=== PATIENT | male | born 1960 | race Caucasian/White ===

== ENCOUNTER 2016-07-12 17:38 | Inpatient (IN) | payer MEDICARE, OTHER ==
[2016-07-12 17:52] LABS: Glucose,Whole Blood 171 mg/dL (75-99)
[2016-07-12] MEDS ORDERED: SODIUM CHLORIDE 0.9% 500 ML IV ONE (17:53)
--- NOTE | 2016-07-12 17:58 | ED ---
General Adult HPI - General Source: patient, RN notes reviewed Mode of arrival: EMS Limitations: physical limitation <Francisco Javier Parra - Last Filed: 07/12/16 18:44> <Irineo Bobby - Last Filed: 07/12/16 20:21> - General Chief complaint: Fall Stated complaint: tremors Time Seen by Provider: 07/12/16 17:45 - History of Present Illness Initial comments: This is a 55-year-old male who presents emergency Department with a past medical history significant for bypass surgery, [place], TIA and a distant past history for alcohol and drug abuse. Patient states today at about 2:30 he had an episode where his whole body was shaking and he felt the ground he did not injure anything when he went to the ground but he states he continued shaking for about 15 minutes. Patient states he was able to get up off the ground while he was shaking but eventually subsided. Patient states just prior to arrival he had similar symptoms but didn't shake as much but did fall to the ground. Patient states both accounts he felt as though he was going to pass out. Patient denies any chest pain or palpitations at the time. Patient denies any difficulty breathing shortness of breath that time. Patient denies any recent fever or cough. Patient denies headache patient denies any focal weakness or numbness. Patient denies any abdominal pain patient denies nausea vomiting diarrhea. Patient denies any back pain. (Francisco Javier Parra) - Related Data Home Medications Medication Instructions Recorded Confirmed Albuterol Inhaler [Ventolin Hfa 2 puff INHALATION RT-QID PRN 07/12/16 07/12/16 Inhaler] Albuterol Nebulized [Ventolin 2.5 mg INHALATION RT-TID 07/12/16 07/12/16 Nebulized] Aspirin 81 mg PO DAILY 07/12/16 07/12/16 Atorvastatin Calcium [Lipitor] 40 mg PO DAILY 07/12/16 07/12/16 Carvedilol [Coreg] 6.25 mg PO BID 07/12/16 07/12/16 Cholecalciferol [Vitamin D3] 1,000 unit PO DAILY 07/12/16 07/12/16 Clopidogrel Bisulfate [Plavix] 75 mg PO DAILY 07/12/16 07/12/16 DULoxetine HCL [Cymbalta] 120 mg PO DAILY 07/12/16 07/12/16 Divalproex ER [Depakote ER] 500 mg PO QID 07/12/16 07/12/16 Docusate [Colace] 100 mg PO BID PRN 07/12/16 07/12/16 Escitalopram Oxalate [Lexapro] 20 mg PO DAILY 07/12/16 07/12/16 Famotidine [Pepcid] 20 mg PO DAILY 07/12/16 07/12/16 Furosemide [Lasix] 40 mg PO DAILY 07/12/16 07/12/16 Gabapentin [Neurontin] 600 mg PO QID 07/12/16 07/12/16 Gemfibrozil [Lopid] 600 mg PO BID 07/12/16 07/12/16 Ibuprofen [Motrin] 800 mg PO Q8HR PRN 07/12/16 07/12/16 Insulin Aspart [NovoLOG] 10 unit SQ ACHS 07/12/16 07/12/16 Insulin Glargine [Lantus] 20 unit SQ QAM 07/12/16 07/12/16 Insulin Glargine [Lantus] 40 unit SQ HS 07/12/16 07/12/16 Multivitamin [Men's Multi-Vitamin] 1 tab PO DAILY 07/12/16 07/12/16 [place]-3 Acid Ethyl Esters [Lovaza] 1 gm PO QID 07/12/16 07/12/16 Potassium Chloride ER [K-Dur 20] 20 meq PO DAILY 07/12/16 07/12/16 Ramipril [Altace] 2.5 mg PO DAILY 07/12/16 07/12/16 Ranolazine [Ranexa] 500 mg PO BID 07/12/16 07/12/16 fentaNYL 12MCG/HR PATCH [Duragesic 1 patch TRANSDERM Q48H 07/12/16 07/12/16 12MCG/HR] fentaNYL 25MCG/HR PATCH [Duragesic 1 patch TRANSDERM Q48H 07/12/16 07/12/16 25MCG/HR] Allergies Allergy/AdvReac Type Severity Reaction Status Date / Time codeine Allergy Itching Verified 07/12/16 18:09 Review of Systems ROS Other: All systems not noted in ROS Statement are negative. <Francisco Javier Parra - Last Filed: 07/12/16 18:44> ROS Other: All systems not noted in ROS Statement are negative. <Irineo Bobby - Last Filed: 07/12/16 20:21> ROS Statement: Those systems with pertinent positive or pertinent negative responses have been documented in the HPI. Past Medical History Past Medical History: CVA/TIA, Diabetes Mellitus, Hyperlipidemia, Hypertension, Myocardial Infarction ([place]) Additional Past Medical History / Comment(s): hx of drug and alcohol abuse. History of Any Multi-Drug Resistant Organisms: None Reported Past Surgical History: Cholecystectomy, Coronary Bypass/CABG, Heart Catheterization With Stent Past Psychological History: Bipolar Smoking Status: Current every day smoker Past Alcohol Use History: None Reported Past Drug Use History: None Reported <Francisco Javier Parra - Last Filed: 07/12/16 18:44> General Exam Limitations: physical limitation <Francisco Javier Parra - Last Filed: 07/12/16 18:44> <Irineo Bobby - Last Filed: 07/12/16 20:21> - General Exam Comments Initial Comments: GENERAL: Patient is well-developed and well-nourished. Patient is nontoxic and well- hydrated and is in no acute distress. ENT: Neck is soft and supple. No significant lymphadenopathy is noted. Oropharynx is clear. Moist mucous membranes. Neck has full range of motion without eliciting any pain. EYES: The sclera were anicteric and conjunctiva were pink and moist. Extraocular movements were intact and pupils were equal round and reactive to light. Eyelids were unremarkable. PULMONARY: Unlabored respirations. Good breath sounds bilaterally. No audible rales rhonchi or wheezing was noted. CARDIOVASCULAR: There is a regular rate and rhythm without any murmurs gallops or rubs. y ABDOMEN: Soft and nontender with normal bowel sounds. No palpable organomegaly was noted. There is no palpable pulsatile mass. SKIN: Skin is clear with no lesions or rashes and otherwise unremarkable. NEUROLOGIC: Patient is alert and oriented x3. Cranial nerves II through XII are grossly intact. Motor and sensory are also intact. Normal speech, volume and content. Symmetrical smile. MUSCULOSKELETAL: Normal extremities with adequate strength and full range of motion. No lower extremity swelling or edema. No calf tenderness. LYMPHATICS: No significant lymphadenopathy is noted PSYCHIATRIC: Normal psychiatric evaluation. (Francisco Javier Parra) Medical Decision Making - Lab Data Result diagrams: 07/12/16 18:00 07/12/16 18:00 <Francisco Javier Parra - Last Filed: 07/12/16 18:44> - Lab Data Result diagrams: 07/12/16 18:00 07/12/16 18:00 - Radiology Data Radiology results: image reviewed (Chest x-ray shows no acute process) <Irineo Bobby - Last Filed: 07/12/16 20:21> - Medical Decision Making EKG shows a sinus rhythm at 64 bpm WI interval is 106 QRS is under 42 QT interval 46 QTC is 474. Patient's EKG shows T-wave inversions in leads 1 and aVL as well as precordial leads V4 through V6 per patient also has some ST segment elevation in leads 3. I'm currently trying to obtain an old EKG for comparison purposes. Patient currently has no chest pain and has not had any chest pain all day. I received the old EKG from [facility] comparative is no acute changes noted. Dr. Bobby will be taking over the care of this patient at 7 PM (Francisco Javier Parra) Patient reevaluated by myself, Dr. Bobby. Patient resting comfortably in bed and symptom-free. Case discussed in detail with Dr. franklin, who will admit for Dr. Kaur. Computed tomography scan will be added. Patient states he did have a recent TIA. (Irineo Bobby) - Lab Data Lab Results 07/12/16 07/12/16 07/12/16 Range/Units 17:48 18:00 18:00 WBC 6.5 (3.8-10.6) k/uL RBC 4.61 (4.30-5.90) m/uL Hgb 14.5 (13.0-17.5) gm/dL Hct 42.0 (39.0-53.0) % MCV 91.1 (80.0-100.0) fL MCH 31.4 (25.0-35.0) pg MCHC 34.4 (31.0-37.0) g/dL RDW 12.7 (11.5-15.5) % Plt Count 211 (150-450) k/uL Neutrophils % 49 % Lymphocytes % 40 % Monocytes % 4 % Eosinophils % 4 % Basophils % 1 % Neutrophils # 3.2 (1.3-7.7) k/uL Lymphocytes # 2.6 (1.0-4.8) k/uL Monocytes # 0.3 (0-1.0) k/uL Eosinophils # 0.3 (0-0.7) k/uL Basophils # 0.0 (0-0.2) k/uL PT (9.0-12.0) sec INR (<1.1) APTT (22.0-30.0) sec Sodium (137-145) mmol/L Potassium (3.5-5.1) mmol/L Chloride (98-107) mmol/L Carbon Dioxide (22-30) mmol/L Anion Gap mmol/L BUN (9-20) mg/dL Creatinine (0.66-1.25) mg/dL Est GFR (MDRD) Af Amer (>60 ml/min/1.73 sqM) Est GFR (MDRD) Non-Af (>60 ml/min/1.73 sqM) Glucose (74-99) mg/dL POC Glucose (mg/dL) 171 H (75-99) mg/dL POC Glu Bench Hand ID [place] Calcium (8.4-10.2) mg/dL Total Bilirubin (0.2-1.3) mg/dL AST (17-59) U/L ALT (21-72) U/L Alkaline Phosphatase (38-126) U/L Total Creatine Kinase 72 (55-170) U/L CK-MB (CK-2) 2.6 H* (0.0-2.4) ng/mL CK-MB (CK-2) Rel Index 3.6 Troponin I 0.041 H* (0.000-0.034) ng/mL Total Protein (6.3-8.2) g/dL Albumin (3.5-5.0) g/dL Urine Color Urine Appearance (Clear) Urine pH (5.0-8.0) Ur Specific [place] (1.001-1.035) Urine Protein (Negative) Urine Glucose (UA) (Negative) Urine Ketones (Negative) Urine Blood (Negative) Urine Nitrate (Negative) Urine Bilirubin (Negative) Urine Urobilinogen (<2.0) mg/dL Ur Leukocyte Esterase (Negative) Urine Opiates Screen (NotDetected) Ur Oxycodone Screen (NotDetected) Urine Methadone Screen (NotDetected) Ur Propoxyphene Screen (NotDetected) Ur Barbiturates Screen (NotDetected) U Tricyclic Antidepress (NotDetected) Ur Phencyclidine Scrn (NotDetected) Ur Amphetamines Screen (NotDetected) U Methamphetamines Scrn (NotDetected) U Benzodiazepines Scrn (NotDetected) Urine Cocaine Screen (NotDetected) U Marijuana (THC) Screen (NotDetected) 07/12/16 07/12/16 07/12/16 Range/Units 18:00 18:00 18:51 WBC (3.8-10.6) k/uL RBC (4.30-5.90) m/uL Hgb (13.0-17.5) gm/dL Hct (39.0-53.0) % MCV (80.0-100.0) fL MCH (25.0-35.0) pg MCHC (31.0-37.0) g/dL RDW (11.5-15.5) % Plt Count (150-450) k/uL Neutrophils % % Lymphocytes % % Monocytes % % Eosinophils % % Basophils % % Neutrophils # (1.3-7.7) k/uL Lymphocytes # (1.0-4.8) k/uL Monocytes # (0-1.0) k/uL Eosinophils # (0-0.7) k/uL Basophils # (0-0.2) k/uL PT 10.1 (9.0-12.0) sec INR 1.0 (<1.1) APTT 21.9 L (22.0-30.0) sec Sodium 140 (137-145) mmol/L Potassium 4.5 (3.5-5.1) mmol/L Chloride 100 (98-107) mmol/L Carbon Dioxide 26 (22-30) mmol/L Anion Gap 14 mmol/L BUN 18 (9-20) mg/dL Creatinine 1.53 H (0.66-1.25) mg/dL Est GFR (MDRD) Af Amer 58 (>60 ml/min/1.73 sqM) Est GFR (MDRD) Non-Af 48 (>60 ml/min/1.73 sqM) Glucose 163 H (74-99) mg/dL POC Glucose (mg/dL) (75-99) mg/dL POC Glu Bench Hand ID Calcium 9.7 (8.4-10.2) mg/dL Total Bilirubin 0.6 (0.2-1.3) mg/dL AST 14 L (17-59) U/L ALT 20 L (21-72) U/L Alkaline Phosphatase 74 (38-126) U/L Total Creatine Kinase (55-170) U/L CK-MB (CK-2) (0.0-2.4) ng/mL CK-MB (CK-2) Rel Index Troponin I (0.000-0.034) ng/mL Total Protein 6.8 (6.3-8.2) g/dL Albumin 3.7 (3.5-5.0) g/dL Urine Color Yellow Urine Appearance Clear (Clear) Urine pH 5.5 (5.0-8.0) Ur Specific [place] 1.014 (1.001-1.035) Urine Protein Trace H (Negative) Urine Glucose (UA) 4+ H (Negative) Urine Ketones Negative (Negative) Urine Blood Negative (Negative) Urine Nitrate Negative (Negative) Urine Bilirubin Negative (Negative) Urine Urobilinogen <2.0 (<2.0) mg/dL Ur Leukocyte Esterase Negative (Negative) Urine Opiates Screen Not Detected (NotDetected) Ur Oxycodone Screen Not Detected (NotDetected) Urine Methadone Screen Not Detected (NotDetected) Ur Propoxyphene Screen Not Detected (NotDetected) Ur Barbiturates Screen Not Detected (NotDetected) U Tricyclic Antidepress Detected H (NotDetected) Ur Phencyclidine Scrn Not Detected (NotDetected) Ur Amphetamines Screen Not Detected (NotDetected) U Methamphetamines Scrn Not Detected (NotDetected) U Benzodiazepines Scrn Not Detected (NotDetected) Urine Cocaine Screen Not Detected (NotDetected) U Marijuana (THC) Screen Not Detected (NotDetected) Disposition <Francisco Javier Parra - Last Filed: 07/12/16 18:44> <Irineo Bobby - Last Filed: 07/12/16 20:21> Clinical Impression: Tremor Disposition: ADMITTED IP TO THIS HOSP
[2016-07-12 18:11] LABS: Basophils % (A) 1 %; CH 32.3; CHCM 35.6; Eosinophils # (A) 0.3 k/uL (0-0.7); Eosinophils % (A) 4 %; HDW 2.91; HGB 14.5 gm/dL (13.0-17.5); Luc # (Auto) 0.11; Luc % (Auto) 2; Lymphocytes # (A) 2.6 k/uL (1.0-4.8); Lymphocytes % (A) 40 %; MCH 31.4 pg (25.0-35.0); MCHC 34.4 g/dL (31.0-37.0); MCV 91.1 fL (80.0-100.0); Mean Platelet Volume 7.6; Monocytes # (A) 0.3 k/uL (0-1.0); Monocytes % (A) 4 %; Neutrophils # (A) 3.2 k/uL (1.3-7.7); Neutrophils % (A) 49 %; RBC 4.61 m/uL (4.30-5.90); RDW 12.7 % (11.5-15.5); WBC 6.5 k/uL (3.8-10.6); WBC (Perox) 6.57
[2016-07-12 18:29] LABS: Calcium 9.7 mg/dL (8.4-10.2); Potassium 4.5 mmol/L (3.5-5.1); Total Bilirubin 0.6 mg/dL (0.2-1.3); Total Protein 6.8 g/dL (6.3-8.2)
[2016-07-12 18:32] LABS: Partial Thromboplastin Time 21.9 sec (22.0-30.0); Prothrombin Time 10.1 sec (9.0-12.0)
[2016-07-12 18:55] LABS: Creatine Kinase MB 2.6 ng/mL (0.0-2.4); Troponin I 0.041 ng/mL (0.000-0.034)
[2016-07-12 19:00] LABS: Appearance,Urine Clear (Clear); Bilirubin,Urine Negative (Negative); Glucose,Urine (UA) 4+ (Negative); Ketones,Urine Negative (Negative); Leukocyte Esterase,Urine Negative (Negative); Nitrite,Urine Negative (Negative); PH, Urine 5.5 (5.0-8.0); Protein,Urine Trace (Negative); Specific Gravity,Urine 1.014 (1.001-1.035); UA Billing (MACRO vs. MICRO) CHEM; Urobilinogen,Urine <2.0 mg/dL (<2.0)
--- NOTE | 2016-07-12 19:34 | XR ---
EXAMINATION TYPE: XR chest 2V DATE OF EXAM: 07/12/2016 6:17 PM HISTORY: Fall today, recent stroke TECHNIQUE: Frontal and lateral views of the chest are obtained. FINDINGS: There is no focal air space opacity, pleural effusion, or pneumothorax seen. The cardiac silhouette size is within normal limits. The osseous structures are intact. IMPRESSION: No acute cardiopulmonary process.
[2016-07-12] MEDS ORDERED: NALOXONE 0.4 MG/ML 1 ML VIAL IV PRN (20:22)
--- NOTE | 2016-07-12 20:56 | CT ---
EXAMINATION TYPE: CT brain wo con DATE OF EXAM: 07/12/2016 8:39 PM COMPARISON: NONE HISTORY: Tremors today. CT DLP: 988.60 mGycm Automated exposure control for dose reduction was used. FINDINGS: There is a 7 cm AP by 4 cm transverse by 4 cm in longitudinal low attenuation defect within the right paramedian cerebral hemisphere, with the low attenuation extending peripherally to involve the cerebral cortex, suggesting cytotoxic edema. The lesion involves the right parietal-occipital lo be in the vascular territory of the right posterior cerebral artery. There is associated sulcal effac ement. consistent with localized mass effect. There is no associated hemorrhage or midline shift of s tructures. There are no other intra-axial lesions. There is no encephalomalacia. The extra-axial compartment is negative. The calvarium is intact. The paranasal sinuses and mastoid sinus air cells and middle ear cavities ar e clear. The orbits are unremarkable. IMPRESSION: 7 x 4 x 4 cm low-attenuation defect appearing to represent cytotoxic edema. The findings suggest nonh emorrhagic infarction in the vascular territory of the right posterior cerebral artery. However, ther e is enough atypia in the findings to warrant further characterization using MRI/MRA without and with contrast.
[2016-07-12] MEDS ORDERED: ASPIRIN 325 MG TAB PO STA (21:13)
[2016-07-13] MEDS ORDERED: DOCUSATE 100 MG CAP PO PRN (00:32)
[2016-07-13] MEDS ORDERED: ALBUTEROL NEBULIZED 2.5 MG/3 ML INHALATION PRN (00:32)
[2016-07-13 00:34] LABS: Glucose,Whole Blood 171 mg/dL (75-99)
[2016-07-13] MEDS ORDERED: NON-FORMULARY DRUG (Omega-3 Acid Ethyl Esters [Lovaza] 1 GM) PO SCH (00:45)
[2016-07-13] MEDS: SODIUM CHLORIDE 0.9% 1,000 ML IV SCH ×2 (01:27→22:57)
[2016-07-13] MEDS: DIVALPROEX ER 500 MG TAB.ER.24H PO SCH ×5 (01:28→20:42)
[2016-07-13] MEDS: CARVEDILOL 6.25 MG TAB PO SCH ×3 (01:28→20:42)
[2016-07-13] MEDS: INSULIN GLARGINE 100 UNIT/ML 10 ML VIAL SQ SCH ×2 (01:28→20:41)
[2016-07-13] MEDS: GABAPENTIN 300 MG CAP PO SCH ×5 (01:29→20:41)
[2016-07-13] MEDS: RANOLAZINE 500 MG TAB.ER.12H PO SCH ×3 (01:29→20:41)
[2016-07-13] MEDS: GEMFIBROZIL 600 MG TAB PO SCH ×3 (01:29→20:42)
[2016-07-13] MEDS: ASPIRIN 325 MG TAB PO SCH ×2 (04:07→09:18)
[2016-07-13 06:55] LABS: Glucose,Whole Blood 344 mg/dL (75-99)
[2016-07-13] MEDS: INSULIN LISPRO (humaLOG) 300 UNIT/3 ML VIAL SQ SCH ×4 (07:06→20:41)
[2016-07-13] MEDS: DULoxetine HCL 60 MG CAPSULE.DR PO SCH (09:18)
[2016-07-13] MEDS: ESCITALOPRAM 20 MG TAB PO SCH (09:19)
[2016-07-13] MEDS: LISINOPRIL 10 MG TAB PO SCH (09:19)
[2016-07-13] MEDS: POTASSIUM CHLORIDE ER 20 MEQ TAB.ER PO SCH (09:19)
[2016-07-13] MEDS: MULTIVITAMINS, THERA 1 EACH TAB PO SCH (09:19)
[2016-07-13] MEDS: FAMOTIDINE 20 MG TAB PO SCH (09:19)
[2016-07-13] MEDS: ATORVASTATIN 40 MG TAB PO SCH (09:19)
[2016-07-13] MEDS: FUROSEMIDE 40 MG TAB PO SCH (09:20)
[2016-07-13] MEDS: CHOLECALCIFEROL 1,000 UNIT TAB PO SCH (09:20)
[2016-07-13] MEDS: CLOPIDOGREL 75 MG TAB PO SCH (09:20)
[2016-07-13] MEDS: ALBUTEROL NEBULIZED 2.5 MG/3 ML INHALATION SCH ×3 (09:50→19:16)
[2016-07-13 11:11] VITALS: RESP 18
[2016-07-13] MEDS ORDERED: LORazepam 2 MG/ML SYRINGE IV STA (11:32)
[2016-07-13 11:46] LABS: Glucose,Whole Blood 269 mg/dL (75-99)
[2016-07-13] MEDS ORDERED: NICOTINE POLACRILEX 2 MG GUM BUCCAL PRN (12:42)
[2016-07-13] MEDS: NICOTINE 14MG/24HR PATCH TRANSDERM SCH (13:08)
[2016-07-13 13:48] LABS: Hemoglobin A1C 11.5 % (4.2-6.1)
--- NOTE | 2016-07-13 16:00 | HP ---
DATE OF ADMISSION: 07/12/2016 PRESENTING COMPLAINT: Shaking. HISTORY OF PRESENTING COMPLAINT: This is a 55-year-old patient of Dr. Nicholas Kaur with rather extensive medical history. Patient's chronic stable medical conditions include congestive heart failure, COPD, diabetes mellitus type 2, hyperlipidemia, hypertension, sleep apnea, hypothyroid. Patient is a smoker. The patient yesterday was walking around the house when he started shaking and felt a bit dizzy. There was no chest pain. No shortness of breath. No edema. No fever. He was brought in for the same. Patient feels well otherwise. Patient did have a troponin leak. REVIEW OF SYSTEMS: CONSTITUTIONAL: Tired. HEENT: None. RESPIRATORY: Occasional wheezing. CARDIOVASCULAR: No chest pain. GASTROINTESTINAL: None. GENITOURINARY: None. MUSCULOSKELETAL: None. DERMATOLOGIC: None. HEMATOLOGIC: None. LYMPHATICS: None. PSYCHIATRY: Anxious. NEUROLOGICAL: As above. No focal weakness. Past medical history of coronary artery disease heart failure, COPD, stroke, diabetes mellitus type 2, hyperlipidemia, hypertension, sleep apnea, hypothyroid, peripheral artery disease, history of drug and alcohol abuse. PAST SURGICAL HISTORY: Cholecystectomy, coronary artery bypass, cardiac cath with stent in 2006, coronary artery bypass in 2011, cholecystectomy. Past psych history of bipolar disorder, PTSD, panic disorder. The patient did crack cocaine back in 2011. The patient has been smoking a pack a day for over 43-years. Currently he is living with his cousin. FAMILY HISTORY: Reviewed, noncontributory to the presentation. HOME MEDICATIONS: 1. Motrin 800 mg p.o. q.8 p.r.n. 2. Fentanyl 25 mcg patch q.48 hours. 3. Fentanyl 12 patch q.48 hours. 4. Lantus 40 units subcu q.h.s. 5. Aspirin 81 mg p.o. daily. 6. Ranexa 500 mg p.o. b.i.d. 7. Vitamin D3 1000 units p.o. daily. 8. Ventolin HFA 2 puffs q.i.d. p.r.n. 9. Altace 2.5 p.o. daily. 10. Potassium 20 mEq p.o. daily. 11. Lovaza 1 gram p.o. q.i.d. 12. Lantus 20 units subcu in the morning. 13. NovoLog 10 units subcu q.a.c. and at bedtime 14. Lopid 600 mg p.o. b.i.d. 15. Neurontin 600 mg p.o. q.i.d. 16. Men's Multivitamin 1 tablet p.o. daily. 17. Lasix 40 mg p.o. daily. 18. Pepcid 20 mg p.o. daily. 19. Lexapro 20 mg p.o. daily. 20. Depakote ER 500 mg p.o. q.i.d. 21. Cymbalta 120 mg p.o. daily. 22. Colace 100 mg p.o. b.i.d. p.r.n. 23. Plavix 75 mg p.o. daily. 24. Coreg 6.25 mg p.o. b.i.d. 25. Lipitor 40 mg p.o. daily. 26. Ventolin 2.5 nebulizer t.i.d. ALLERGIES TO CODEINE. On examination, vital signs on presentation: Temperature 97.2, pulse 55, respirations 18, blood pressure 119/67, pulse ox 97% on 2 liters. GENERAL APPEARANCE: Average built, sitting up, not in distress. EYES: Pupils equal. Conjunctivae normal. HEENT: External appearance of nose and ears normal. Oral cavity normal. NECK: JVD not raised. Mass not palpable. RESPIRATORY: Effort ( ) LUNGS: Fair entry. CARDIOVASCULAR: First and second sounds normal. No edema. ABDOMEN: Soft, nontender. Liver and spleen not palpable. LYMPHATIC: No lymph nodes palpable in the neck or axillae. PSYCHIATRY: Alert and oriented x3. Mood and affect slightly anxious. NEUROLOGICAL: Pupils equal. Cranial nerves grossly intact. Power and sensation grossly intact. INVESTIGATIONS: White count 6.5, hemoglobin 14.5, platelets 211, potassium 4.5, BUN 18, creatinine 1.53. Troponin 0.041, 0.050. EKG shows some changes. Patient's CT scan of the brain shows attenuation defect representing what may be cytotoxic edema with some other atypical findings. ASSESSMENT: 1. This is a patient who presents with generalized shaking episode, some dizziness. Troponin leak. Actually has no cardiac symptoms per se, but had some EKG changes. Will get a cardiology opinion. 2. Nonspecific CT scan of the brain findings. Patient is already on aspirin. Will get a neurological opinion. 3. Coronary artery disease with prior history of stent and CABG. 4. Chronic congestive heart failure, ejection fraction not known. 5. Chronic obstructive pulmonary disease in a current smoker. 6. Diabetes mellitus, type 2. 7. Hyperlipidemia. 8. Hypertension. 9. Sleep apnea. 10. Chronic nicotine dependence. Patient is cigarette smoker. PLAN: Patient's home medications will be resumed. Will get another EKG and 2-D echocardiogram. Care was discussed with the patient and cousin at the bedside. Advised against smoking strongly. Given nicotine patch and gum.
--- NOTE | 2016-07-13 17:31 | MR ---
EXAMINATION TYPE: MR brain wo/w con DATE OF EXAM: 07/13/2016 5:13 PM COMPARISON: CT scan of the brain yesterday HISTORY: Tremors CONTRAST: Standard multiplanar, multisequence MRI departmental protocol without and utilizing 20 mL intravenous MultiHance gadolinium contrast. FINDINGS: There is a 6 x 2.5 cm area of increased signal in the medial right occipital lobe on the di ffusion images consistent with subacute infarct. There is no mass effect. There is no midline shift. There is cerebral cortical atrophy. Ventricles are slightly enlarged. The remainder of the brain has fairly normal signal pattern. Posterior fossa structures are intact. The sella turcica appears normal . There is mild thinning of the corpus callosum. There is a gyriform pathologic enhancement pattern t hroughout the involved right occipital lobe. IMPRESSION: There is evidence of a subacute right occipital lobe infarct with typical gyriform enhancement. Mild normal pressure type hydrocephalus. White matter atrophy with thinning of the corpus callosum. N o other infarct identified. No change compared to CT scan yesterday.
[2016-07-13 17:40] LABS: Glucose,Whole Blood 146 mg/dL (75-99)
--- NOTE | 2016-07-13 17:45 | MR ---
EXAMINATION TYPE: MR angio head wo/w con DATE OF EXAM: 07/13/2016 5:13 PM COMPARISON: NONE HISTORY: Tremors TECHNIQUE: Time of flight images focusing on the [place] were performed utilizing 20 mL intr avenous MultiHance gadolinium contrast. FINDINGS: There is arterial flow in the anterior middle and posterior cerebral arteries. There is art erial flow in the vertebrobasilar artery system. There is flow in both distal vertebral arteries. The re is no evidence of aneurysm. I do not see any significant occlusive disease involving the right pos terior cerebral artery in the area of the occipital lobe infarct. Right posterior cerebral artery is smaller than the left but I think is not the cause of the occipital infarct. There is no evidence of hemodynamically significant stenosis. There is a patent left posterior communicating artery. There is very small or absent right posterior commuting artery. Left vertebral artery slightly larger than th e right. IMPRESSION: Negative MR angiogram of the brain. Exam fails to demonstrate a cause for right occipital lobe infarc t.
--- NOTE | 2016-07-13 17:58 | P.CONS ---
History of Present Illness - Reason for Consult Consult date: 07/13/16 Tremors - History of Present Illness This is a 55-year-old male being evaluated by the neurology service for an episode of shaking that happened 2 days ago. He has a significant history for coronary artery bypass surgery, OR, TIA and drug and alcohol abuse. He says he was in [facility] about 2 weeks ago and told he had a stroke. At the time his symptoms were severe headache dizziness and confusion. Initial CT of the brain showed a 7 x 4 x 4 cm low attenuation suggestive of a nonhemorrhagic infarct. He was not a candidate for TPA because of the extended length of his symptoms. He was admitted and then at the time of my evaluation he is just returned from an MRI and MRA of the brain. He denies any lateralizing symptoms. He denies any vision changes. He does complain of a mild headache that is relieved with Motrin. He did have a mildly elevated CK and troponin on admission. His EKG was also abnormal. He had a normal urine toxicological screening. His creatinine was slightly elevated as was his glucose. He did also have some glucosuria. Review of Systems All systems: negative Past Medical History Past Medical History: Coronary Artery Disease (CAD), Chest Pain / Angina, Heart Failure, COPD, CVA/TIA, Diabetes Mellitus, Eye Disorder, Hyperlipidemia, Hypertension, Myocardial Infarction (OR), Neurologic Disorder, Pneumonia, Respiratory Disorder, Sleep Apnea/CPAP/BIPAP, Syncope, Thyroid Disorder, Vascular Disorder Additional Past Medical History / Comment(s): hx of drug and alcohol abuse. Last Myocardial Infarction Date:: 2006 History of Any Multi-Drug Resistant Organisms: None Reported Past Surgical History: Cholecystectomy, Coronary Bypass/CABG, Heart Catheterization With Stent Additional Past Surgical History / Comment(s): OR 2006, CABG Quad 2011, Cholecystectomy 2000, Past Anesthesia/Blood Transfusion Reactions: No Reported Reaction Date of Last Stent Placement:: 2006 Past Psychological History: Anxiety, Bipolar, Depression, Panic Disorder, PTSD Smoking Status: Current every day smoker Past Alcohol Use History: None Reported Past Drug Use History: Cocaine, Marijuana Additional Drug Use History / Comment(s): stopped cocaine/crack in 2011 - Past Family History Father Family Medical History: No Reported History Mother Family Medical History: Coronary Artery Disease (CAD), Diabetes Mellitus, Hyperlipidemia, Hypertension Medications and Allergies Home Medications Medication Instructions Recorded Confirmed Type Albuterol Inhaler [Ventolin Hfa 2 puff INHALATION RT-QID PRN 07/12/16 07/12/16 History Inhaler] Albuterol Nebulized [Ventolin 2.5 mg INHALATION RT-TID 07/12/16 07/12/16 History Nebulized] Aspirin 81 mg PO DAILY 07/12/16 07/12/16 History Atorvastatin Calcium [Lipitor] 40 mg PO DAILY 07/12/16 07/12/16 History Carvedilol [Coreg] 6.25 mg PO BID 07/12/16 07/12/16 History Cholecalciferol [Vitamin D3] 1,000 unit PO DAILY 07/12/16 07/12/16 History Clopidogrel Bisulfate [Plavix] 75 mg PO DAILY 07/12/16 07/12/16 History DULoxetine HCL [Cymbalta] 120 mg PO DAILY 07/12/16 07/12/16 History Divalproex ER [Depakote ER] 500 mg PO QID 07/12/16 07/12/16 History Docusate [Colace] 100 mg PO BID PRN 07/12/16 07/12/16 History Escitalopram Oxalate [Lexapro] 20 mg PO DAILY 07/12/16 07/12/16 History Famotidine [Pepcid] 20 mg PO DAILY 07/12/16 07/12/16 History Furosemide [Lasix] 40 mg PO DAILY 07/12/16 07/12/16 History Gabapentin [Neurontin] 600 mg PO QID 07/12/16 07/12/16 History Gemfibrozil [Lopid] 600 mg PO BID 07/12/16 07/12/16 History Ibuprofen [Motrin] 800 mg PO Q8HR PRN 07/12/16 07/12/16 History Insulin Aspart [NovoLOG] 10 unit SQ ACHS 07/12/16 07/12/16 History Insulin Glargine [Lantus] 20 unit SQ QAM 07/12/16 07/12/16 History Insulin Glargine [Lantus] 40 unit SQ HS 07/12/16 07/12/16 History Multivitamin [Men's Multi-Vitamin] 1 tab PO DAILY 07/12/16 07/12/16 History [place]-3 Acid Ethyl Esters [Lovaza] 1 gm PO QID 07/12/16 07/12/16 History Potassium Chloride ER [K-Dur 20] 20 meq PO DAILY 07/12/16 07/12/16 History Ramipril [Altace] 2.5 mg PO DAILY 07/12/16 07/12/16 History Ranolazine [Ranexa] 500 mg PO BID 07/12/16 07/12/16 History fentaNYL 12MCG/HR PATCH [Duragesic 1 patch TRANSDERM Q48H 07/12/16 07/12/16 History 12MCG/HR] fentaNYL 25MCG/HR PATCH [Duragesic 1 patch TRANSDERM Q48H 07/12/16 07/12/16 History 25MCG/HR] Allergies Allergy/AdvReac Type Severity Reaction Status Date / Time codeine Allergy Itching Verified 07/12/16 18:09 Physical Exam Vitals: Vital Signs Temp Pulse Pulse Pulse Resp BP BP 07/13/16 15:37 56 L 18 07/13/16 15:36 97.3 F L 56 L 18 159/83 07/13/16 11:11 97.0 F L 60 18 127/72 07/13/16 09:55 66 07/13/16 08:00 97.1 F L 63 20 162/82 07/13/16 04:00 97.6 F 74 16 107/69 07/13/16 00:00 98.0 F 59 L 16 114/71 07/12/16 22:51 81 18 125/68 07/12/16 21:18 98.0 F 59 L 16 114/71 Pulse Ox 07/13/16 15:37 07/13/16 15:36 97 07/13/16 11:11 97 07/13/16 09:55 07/13/16 08:00 98 07/13/16 04:00 95 07/13/16 00:00 99 07/12/16 22:51 95 07/12/16 21:18 99 Intake and Output 07/13/16 07/13/16 07/13/16 06:59 14:59 22:59 Intake Total 640 Output Total 450 575 Balance -450 65 Intake: Intake, IV Titration 100 Amount Sodium Chloride 0.9% 1, 100 000 ml @ 20 mls/hr IV . Q24H [facility] Rx#:[id number] Oral 540 Output: Urine 450 575 Other: Voiding Method Toilet Toilet Toilet # Voids 1 Weight 76.9 kg - Constitutional General appearance: average body habitus, cooperative, no acute distress - EENT Eyes: no abnormal pupil, EOMI, PERRLA, no ptosis ENT: hearing grossly normal - Neck Neck: normal ROM, no rigidity - Respiratory Respiratory: negative: prolonged expiration, prolonged inspiration - Cardiovascular Rhythm: regular - Gastrointestinal General gastrointestinal: no distended, no tenderness - Neurologic Patient is alert and oriented 3 speech language are normal. There is no lateralizing weakness. Extraocular muscles are intact. There is no visual field deficit. Romberg is negative. Strength is full in bilateral upper and lower extremities. There is no sensory deficit. Cranial nerves II through XII are intact globally. Results CBC & Chem 7: 07/12/16 18:00 07/12/16 18:00 Labs: Abnormal Lab Results - Last 24 Hours (Table) 07/12/16 07/12/16 07/13/16 Range/Units 23:35 23:59 06:11 POC Glucose (mg/dL) 171 H (75-99) mg/dL Hemoglobin A1c (4.2-6.1) % Troponin I 0.050 H* 0.043 H* (0.000-0.034) ng/mL 07/13/16 07/13/16 07/13/16 Range/Units 06:11 06:50 11:43 POC Glucose (mg/dL) 344 H 269 H (75-99) mg/dL Hemoglobin A1c 11.5 H (4.2-6.1) % Troponin I (0.000-0.034) ng/mL 07/13/16 Range/Units 17:34 POC Glucose (mg/dL) 146 H (75-99) mg/dL Hemoglobin A1c (4.2-6.1) % Troponin I (0.000-0.034) ng/mL Assessment and Plan (1) Tremor Status: Resolved (2) Hypertension Status: Chronic (3) Diabetes Status: Chronic (4) Hyperlipidemia Status: Chronic (5) Right middle cerebral artery stroke Status: Acute Plan: The patient has a subacute stroke of the right middle cerebral artery distribution. We are awaiting records from his previous hospitalization which occurred at the beginning of this month. Preliminary MRI results have returned confirming this finding. He has no residual neurological deficits at this point. Recommend continue neurological checks. He is already on aspirin and Plavix. I have ordered a carotid Doppler and a lipid panel along with serum homocysteine level. We will continue to follow. I reviewed the history and physical on the above patient. I have reviewed the above note, and agree.
--- NOTE | 2016-07-13 18:50 | CONS ---
DATE OF CONSULTATION: A 55-year-old gentleman with history of coronary artery disease, status post CABG in 2012, recent history of TIA and admission to [facility] and subsequently transferred to [facility], dyslipidemia, hypertension, who presented to hospital primarily with symptoms of feeling tremulous and unwell. He had troponin done that came back slightly elevated for which cardiology has been consulted. He does not have chest pain, difficulty in breathing, palpitations, or syncope. Past medical history is significant for CAD, status post CABG, status post angioplasty, cholecystectomy, bipolar mood disorder, panic disorder, patient has a history of crack cocaine use in the past and has history of smoking. Medications include Motrin, fentanyl, insulin, aspirin, Ranexa, Ventolin, Altace, Lovaza, insulin, Lopid, Neurontin, Lasix, Pepcid, Lexapro, Depakote, Cymbalta, Plavix, Coreg. FAMILY HISTORY: Negative for premature coronary artery disease. SOCIAL HISTORY: Significant for smoking. There is no EtOH abuse. REVIEW OF SYSTEMS: Significant for tremor and mild confusion. There is no history of chest pain. The rest of the system review is not relevant. On exam, comfortable at rest. Vital signs are stable. Blood pressure is elevated at 159/83. There is no jugular venous distention. Carotid upstroke is normal. There is no bruit. Chest exam reveals good air entry bilaterally. Heart exam reveals first and second heart sounds. No gallop. Has a systolic murmur at the apex. Abdomen is soft. Exam of the extremities did not reveal any edema. Peripheral pulses are felt. EKG shows sinus rhythm with evidence of inferior wall myocardial infarction and changes of left ventricular hypertrophy. Troponins are elevated 0.04, 0.05, 0.04. Hemoglobin A1c is elevated at 11.5. Labs show a BUN is 18. Creatinine is 1.5. Potassium is 4.5. Hemoglobin is 14.5. ASSESSMENT: 1. Troponin elevation of unclear clinical significance, tremor and lack of coordination, probably related to the recent cerebrovascular accident. 2. Coronary artery disease, status post coronary artery bypass graft. 3. Hypertension. 4. Dyslipidemia. PLAN: I am going to obtain a 2-D echo on him tomorrow morning. I will try and obtain his records from [facility]. I have instructed the nurse to do the same thing. 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
--- NOTE | 2016-07-13 20:29 | US ---
EXAMINATION TYPE: US carotid duplex BILAT DATE OF EXAM: 07/13/2016 8:18 PM COMPARISON: No previous CLINICAL HISTORY: stroke. EXAM MEASUREMENTS: RIGHT: Peak Systolic Velocity (PSV) cm/sec ----- Right CCA: 104.1 ----- Right ICA: 72.8 ----- Right ECA: 69.3 ICA/CCA ratio: 0.7 RIGHT: End Diastole cm/sec ----- Right CCA: 21.2 ----- Right ICA: 20.8 ----- Right ECA: 7.7 LEFT: Peak Systolic Velocity (PSV) cm/sec ----- Left CCA: 122.1 ----- Left ICA: 69.0 ----- Left ECA: 81.7 ICA/CCA ratio: 0.6 LEFT: End Diastole cm/sec ----- Left CCA: 22.0 ----- Left ICA: 25.0 ----- Left ECA: 6.5 VERTEBRALS (direction of flow): Right Vertebral: Antegrade Left Vertebral: Antegrade TECHNOLOGIST IMPRESSION: Bilateral intimal thickening, minimal plaque bilateral bulb and proximal IC A, no elevated velocities, no significant stenosis IMPRESSION: There is antegrade flow in the vertebral arteries. The images and measurements suggest 3 0-40 % stenosis in both internal carotid arteries. Criteria for Assigning % of Stenosis / Diameter reduction (Estimation based on the indirect measurements of the internal carotid artery velocities (ICA PSV). 1. Normal (no stenosis)=ICA PSV < 125 cm/s: ratio < 2.0: ICA EDV<40 cm/s. 2. Less than 50% stenosis=ICA PSV < 125 cm/s: ratio < 2.0: ICA EDV<40 cm/s. 3. 50 to 69% stenosis=ICA PSV of 125 to 230 cm/s: ration 2.0 ? 4.0: ICA EDV 40-100 cm/s. 4. Greater than 70% stenosis to near occlusion= ICA PSV > 230 cm/s: ratio > 4.0: ICA EDV > 100 cm/s. 5. Near occlusion= ICA PSV velocities may be low or undetectable: variable ratio and ICA EDV. 6. Total occlusion=unable to detect flow.
[2016-07-13 20:36] LABS: Glucose,Whole Blood 237 mg/dL (75-99)
[2016-07-14 05:35] LABS: Glucose,Whole Blood 386 mg/dL (75-99)
[2016-07-14] MEDS: INSULIN LISPRO (humaLOG) 300 UNIT/3 ML VIAL SQ SCH ×3 (06:30→17:11)
[2016-07-14 07:11] LABS: Anion Gap 8 mmol/L; Blood Urea Nitrogen 20 mg/dL (9-20); Calcium 9.5 mg/dL (8.4-10.2); Carbon Dioxide 35 mmol/L (22-30); Chloride 97 mmol/L (98-107); Glucose 335 mg/dL (74-99); Magnesium 1.3 mg/dL (1.6-2.3); Non-African American GFR(MDRD) 58 (>60 ml/min/1.73 sqM); Potassium 4.2 mmol/L (3.5-5.1); Sodium 140 mmol/L (137-145)
[2016-07-14] MEDS: ALBUTEROL NEBULIZED 2.5 MG/3 ML INHALATION SCH ×2 (08:12→14:06)
[2016-07-14] MEDS: ASPIRIN 325 MG TAB PO SCH (08:24)
[2016-07-14] MEDS: CARVEDILOL 6.25 MG TAB PO SCH (08:24)
[2016-07-14] MEDS: ATORVASTATIN 40 MG TAB PO SCH (08:24)
[2016-07-14] MEDS: CLOPIDOGREL 75 MG TAB PO SCH (08:25)
[2016-07-14] MEDS: DIVALPROEX ER 500 MG TAB.ER.24H PO SCH ×3 (08:25→17:10)
[2016-07-14] MEDS: CHOLECALCIFEROL 1,000 UNIT TAB PO SCH (08:25)
[2016-07-14] MEDS: FAMOTIDINE 20 MG TAB PO SCH (08:26)
[2016-07-14] MEDS: FUROSEMIDE 40 MG TAB PO SCH (08:26)
[2016-07-14] MEDS: DULoxetine HCL 60 MG CAPSULE.DR PO SCH (08:26)
[2016-07-14] MEDS: ESCITALOPRAM 20 MG TAB PO SCH (08:26)
[2016-07-14] MEDS: GEMFIBROZIL 600 MG TAB PO SCH (08:26)
[2016-07-14] MEDS: POTASSIUM CHLORIDE ER 20 MEQ TAB.ER PO SCH (08:27)
[2016-07-14] MEDS: NICOTINE 14MG/24HR PATCH TRANSDERM SCH (08:27)
[2016-07-14] MEDS: LISINOPRIL 10 MG TAB PO SCH (08:27)
[2016-07-14] MEDS: GABAPENTIN 300 MG CAP PO SCH ×3 (08:27→17:10)
[2016-07-14] MEDS: RANOLAZINE 500 MG TAB.ER.12H PO SCH (08:27)
[2016-07-14] MEDS: MULTIVITAMINS, THERA 1 EACH TAB PO SCH (08:27)
[2016-07-14] MEDS: MAGNESIUM SULFATE-D5W PMX 1 GM in DEXTROSE/WATER 1 100ML.BAG IVPB SCH ×2 (10:01→11:23)
[2016-07-14 10:47] VITALS: BMI 26.0
[2016-07-14 12:11] LABS: Glucose,Whole Blood 252 mg/dL (75-99)
[2016-07-14 12:16] VITALS: TEMP 96.7
--- NOTE | 2016-07-14 13:52 | PN ---
Mr. Queen is a gentleman with a history of prior bypass surgery came in with some kind of a visual field defects and tremulousness and TIA-like picture. I am awaiting a full input from neurology. It appears that he may have had a TIA or CVA, but cardiac-adorno he is stable. Troponin profile does not suggest myocardial injury to suggest any ischemia or infarction. He is hemodynamically stable. Does not have any chest pain. Vital signs stable. S1, S2 heard normally. Lungs are clear. Abdomen and lower extremity exam unchanged. No motor deficit but patient has visual deficits possibly an occipital stroke type picture. No intervention from a cardiac standpoint, but I will await neurology input and patient can be discharged whenever it is okay with neurology.
--- NOTE | 2016-07-14 14:50 | P.PN ---
Subjective Principal diagnosis: Stroke This 56-year-old male continue be evaluated by the neurology service. Recall that he was in [facility] over 2 weeks ago for stroke. Upon presentation to the [facility] emergency room he had complained of headaches and dizziness and shaking. These of mostly resolved except for mild headache. Initial CT of the brain showed an area of low attenuation suggested of an infarct. A subsequent MRA of the brain was normal. An MRI of the brain confirmed a subacute right occipital lobe infarct. No other areas of infarct were identified. And there was no change from the CT of of the brain done the day before. His carotid Doppler showed no hemodynamically significant stenosis. He denies any new or worsening symptoms. Objective - Vital Signs Vital signs: Vital Signs Temp 96.7 F L 07/14/16 12:00 Pulse 60 07/14/16 12:00 Resp 18 07/14/16 12:00 BP 151/77 07/14/16 12:00 Pulse Ox 95 07/14/16 12:00 Intake & Output 07/13/16 07/14/16 07/14/16 18:59 06:59 18:59 Intake Total 1000 600 200 Output Total 575 850 Balance 425 -250 200 Weight 77.7 kg 77.7 kg Intake: IV 200 Magnesium Sulfate-D5w Pmx 200 1 gm In Dextrose/Water 1 100ml.bag @ 100 mls/hr IVPB Q1H [facility] Rx#: [id number] Intake, IV Titration 100 Amount Sodium Chloride 0.9% 1, 100 000 ml @ 20 mls/hr IV . Q24H [facility] Rx#:[id number] Oral 900 600 Output: Urine 575 850 Other: Voiding Method Toilet Toilet Toilet # Voids 2 - Constitutional General appearance: Present: average body habitus, cooperative, no acute distress - EENT Eyes: Present: EOMI, PERRLA. Absent: abnormal pupil, ptosis ENT: Present: hearing grossly normal - Neck Neck: Present: normal ROM. Absent: rigidity - Respiratory Respiratory: negative: prolonged expiration, prolonged inspiration - Gastrointestinal General gastrointestinal: Absent: distended - Neurologic Neurologic Comment(s): Patient is alert awake and oriented 3. Speech-language are normal. There is no lateralizing weakness. No visual field deficit is appreciated. Strength is full in bilateral upper lower extremities. There is no sensory deficit. Romberg is negative. - Labs CBC & Chem 7: 07/12/16 18:00 07/14/16 05:54 Labs: Abnormal Lab Results - Last 24 Hours (Table) 07/13/16 07/13/16 07/14/16 Range/Units 17:34 20:35 05:33 Chloride (98-107) mmol/L Carbon Dioxide (22-30) mmol/L Creatinine (0.66-1.25) mg/dL Glucose (74-99) mg/dL POC Glucose (mg/dL) 146 H 237 H 386 H (75-99) mg/dL Magnesium (1.6-2.3) mg/dL 07/14/16 07/14/16 Range/Units 05:54 12:04 Chloride 97 L (98-107) mmol/L Carbon Dioxide 35 H (22-30) mmol/L Creatinine 1.29 H (0.66-1.25) mg/dL Glucose 335 H (74-99) mg/dL POC Glucose (mg/dL) 252 H (75-99) mg/dL Magnesium 1.3 L (1.6-2.3) mg/dL Assessment and Plan (1) Tremor Status: Resolved (2) Hypertension Status: Chronic (3) Diabetes Status: Chronic (4) Hyperlipidemia Status: Chronic (5) Right middle cerebral artery stroke Status: Acute Plan: The patient has a subacute stroke of the right middle cerebral artery distribution. He has no residual neurological deficits at this point. He is already on aspirin and Plavix. We will follow up in outpatient basis. Otherwise he is cleared from a neurological standpoint. I reviewed the history and physical on the above patient. I have reviewed the above note, and agree.
--- NOTE | 2016-07-14 15:03 | ECHOF ---
Referral Reason:troponi MEASUREMENTS -------- HEIGHT: 172.7 cm WEIGHT: 77.6 kg BP: IVSd: 1.5 cm (0.6 - 1.1) LVIDd: 4.9 cm (3.9 - 5.3) LVPWd: 1.4 cm (0.6 - 1.1) IVSs: 1.7 cm LVIDs: 4.7 cm LVPWs: 1.2 cm LA Diam: 4.7 cm (2.7 - 3.8) LAESV Index (A-L): 39.47 ml/m Ao Diam: 3.5 cm (2.0 - 3.7) AV Cusp: 1.9 cm (1.5 - 2.6) LA Diam: 4.5 cm (2.7 - 3.8) MV EXCURSION: 15.618 mm (> 18.000) MV EF SLOPE: 74 mm/s (70 - 150) EPSS: 0.8 cm MV E Jeyson: 0.58 m/s MV DecT: 285 ms MV A Jeyson: 0.84 m/s MV E/A Ratio: 0.69 RAP: 5.00 mmHg RVSP: 11.89 mmHg FINDINGS -------- Undetermined rhythm. This was a technically adequate study. There is moderate concentric left ventricular hypertrophy. Overall left ventricular systolic function is mild-moderately impaired with, an EF between 40 - 45 %. Septal wall motion is delayed and consistent with prior cardiac surgery. Basal posterior LV wall motion is hypokinetic. Basal inferior LV wall motion is akinetic. The right ventricle is normal in size. LA is moderately dilated 34-39 ml/m2 The right atrial size is normal. There is mild aortic valve sclerosis. There is no evidence of aortic regurgitation. Mild mitral annular calcification present. Mild mitral regurgitation is present. Mild tricuspid regurgitation present. There is no evidence of pulmonary hypertension. The right ventricular systolic pressure, as measured by Doppler, is 11.89mmHg. There is no pulmonic regurgitation present. The aortic root size is normal. There is no pericardial effusion. CONCLUSIONS -------- 1. There is moderate concentric left ventricular hypertrophy. 2. Mild tricuspid regurgitation present. 3. There is no evidence of pulmonary hypertension. 4. The right ventricular systolic pressure, as measured by Doppler, is 11.89mmHg. 5. Overall left ventricular systolic function is mild-moderately impaired with, an EF between 40 - 45 %. 6. Septal wall motion is delayed and consistent with prior cardiac surgery. 7. Basal posterior LV wall motion is hypokinetic. 8. Basal inferior LV wall motion is akinetic. 9. LA is moderately dilated 34-39 ml/m2 10. There is mild aortic valve sclerosis. 11. Mild mitral annular calcification present. 12. Mild mitral regurgitation is present. [place]: Soo Owusu RDCS
[2016-07-14 16:20] VITALS: BP 139/67; PULSE 56
[2016-07-14 16:44] LABS: Glucose,Whole Blood 260 mg/dL (75-99)
--- NOTE | 2016-07-15 10:10 | DS ---
DATE OF ADMISSION: 07/12/2016 DATE OF DISCHARGE: 07/14/2016 FINAL DIAGNOSES: 1. Right occipital lobe infarct in a right-handed patient, likely ischemic in the territory of the posterior circulation 2. Coronary artery disease with prior history of stent and CABG. 3. Chronic congestive heart failure from systolic dysfunction; ejection fraction 40% to 45%, from underlying coronary artery disease. 4. Chronic obstructive pulmonary disease in a current smoker. 5. Diabetes mellitus, type 2. 6. Hyperlipidemia. 7. Essential hypertension. 8. Sleep apnea. 9. Chronic nicotine dependence, patient is a cigarette smoker. HOSPITAL COURSE: Patient presented with episodes of shaking. This well could be a focal seizure from stroke that was discovered on the MRI right occipital lobe. Patient had a small troponin leak. 2-D echo showed an EF of 40% to 45%, has a known prior history of coronary artery disease. Patient counseled extensively about smoking. The patient's MRI of the brain showed above findings. Carotid Doppler did not show any critical stenosis. On examination: LUNGS: Fair air entry. CARDIOVASCULAR: First and second sounds normal. DISCHARGE MEDICATIONS: 1. Ventolin HFA 2 puffs q.i.d. p.r.n. 2. Ventolin nebulizer 2.5 t.i.d. 3. ( ) 200 mg daily. 4. Lipitor 40 mg daily. 5. Coreg 6.25 p.o. b.i.d. 6. Vitamin D3 2000 units p.o. daily. 7. Plavix 75 mg p.o. daily. 8. Cymbalta 120 mg p.o. daily. 9. Depakote ER 500 mg p.o. q.i.d. 10. Colace 100 mg p.o. b.i.d. 11. Lexapro 20 mg p.o. daily. 12. Pepcid 20 mg p.o. daily. 13. Lasix 40 mg p.o. daily. 14. Neurontin 600 mg p.o. q.i.d. 15. Lopid 600 mg p.o. b.i.d. 16. NovoLog 10 units subcu a.c. and at bedtime. 17. Lantus 20 units at the morning, 40 in the evening. 18. Men's multivitamin 1 tablet p.o. daily. 19. Lovaza 1 gram p.o. q.i.d. 20. Potassium 20 mEq daily. 21. Altace 2.5 mg p.o. daily. 22. Ranexa 500 mg p.o. b.i.d. 23. Duragesic 25 mcg patch. 24. Nicotine patch and nicotine gum as directed. Follow with Dr. Kaur in a week; follow with Dr. Rm in 3 weeks; follow up with Cardiology.
== END 2016-07-14 19:05 | disposition home or self-care (01) | DRG 65 ==
LOC: EC 17:38 → 6SEL 20:22
PROVIDERS: ADMIT Hospitalist; ATTEND Hospitalist
DX: I63.8 Other cerebral infarction (principal); I50.22 Chronic systolic (congestive) heart failure; E11.51 Type 2 diabetes mellitus with diabetic peripheral angiopathy without gangrene; I11.0 Hypertensive heart disease with heart failure; I10 Essential (primary) hypertension; E03.9 Hypothyroidism, unspecified; R25.1 Tremor, unspecified; E78.5 Hyperlipidemia, unspecified; F17.210 Nicotine dependence, cigarettes, uncomplicated; F41.0 Panic disorder [episodic paroxysmal anxiety]; F43.10 Post-traumatic stress disorder, unspecified; G47.30 Sleep apnea, unspecified; I25.10 Atherosclerotic heart disease of native coronary artery without angina pectoris; I25.2 Old myocardial infarction; J44.9 Chronic obstructive pulmonary disease, unspecified; F32.9 Major depressive disorder, single episode, unspecified; F41.9 Anxiety disorder, unspecified; Z79.02 Long term (current) use of antithrombotics/antiplatelets; Z79.82 Long term (current) use of aspirin; Z79.899 Other long term (current) drug therapy; Z95.5 Presence of coronary angioplasty implant and graft; Z95.1 Presence of aortocoronary bypass graft; Z88.5 Allergy status to narcotic agent; Z82.49 Family history of ischemic heart disease and other diseases of the circulatory system
CPT/HCPCS: 36415; 70450; 70546; 70553; 71020; 80048; 80053; 80306; 81003; 82550; 82553; 83036; 83735; 84484; 85025; 85610; 85730; 93005; 93306; 93880; 94640; 96360; 96361; 99285

== ENCOUNTER 2018-09-27 21:45 | Inpatient (IN) | payer MEDICARE, OTHER ==
[2018-09-27] MEDS ORDERED: ASPIRIN 81 MG PO STA (21:53)
[2018-09-27 22:08] LABS: Glucose,Whole Blood 126 mg/dL (75-99)
[2018-09-27 22:16] LABS: Basophils % (A) 1 %; Eosinophils # (A) 0.3 k/uL (0-0.7); Eosinophils % (A) 4 %; HCT 37.4 % (39.0-53.0); HGB 13.1 gm/dL (13.0-17.5); Lymphocytes # (A) 2.3 k/uL (1.0-4.8); Lymphocytes % (A) 38 %; MCH 31.8 pg (25.0-35.0); MCHC 34.9 g/dL (31.0-37.0); Mean Platelet Volume 7.4; Monocytes # (A) 0.4 k/uL (0-1.0); Monocytes % (A) 6 %; Neutrophils # (A) 2.9 k/uL (1.3-7.7); Neutrophils % (A) 49 %; Platelet Count 162 k/uL (150-450); RBC 4.11 m/uL (4.30-5.90); RDW 13.7 % (11.5-15.5); WBC 6.1 k/uL (3.8-10.6)
[2018-09-27 22:25] LABS: Albumin 3.3 g/dL (3.5-5.0); Calcium 8.9 mg/dL (8.4-10.2); Magnesium 1.4 mg/dL (1.6-2.3); Potassium 4.5 mmol/L (3.5-5.1); Total Bilirubin 0.6 mg/dL (0.2-1.3)
--- NOTE | 2018-09-27 22:27 | ED ---
General Adult HPI - General Chief complaint: Syncope Stated complaint: Bradycardic Time Seen by Provider: 09/27/18 21:53 Source: patient, EMS Mode of arrival: EMS Limitations: no limitations - History of Present Illness Initial comments: Javon is a 58-year-old gentleman with extensive past medical history including CAD, CABG in the past, known AAA which is currently being monitored. Patient reports he was in his usual state of health throughout the day today, he states he didn't eat lunch he was standing in line to order dinner at [employer] when he began to feel very lightheaded felt like his legs would give out and he lowered himself to the floor. Patient reports this is happened in the past. Patient states he didn't have any palpitations chest pain shortness of breath abdominal pain when this happened. He states he just felt like he needed to pass out so he laid on the ground so that he wouldn't fall. He reports he continues to feel somewhat fatigued but without any causing complaints. 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 States the supposed to be seen on Saturday for his routine ultrasound of his AAA. Time of initial evaluation patient's only complaint was that he was hungry. - Related Data Home Medications Medication Instructions Recorded Confirmed Albuterol Inhaler [Ventolin Hfa 2 puff INHALATION RT-QID PRN 07/12/16 09/27/18 Inhaler] Albuterol Nebulized [Ventolin 2.5 mg INHALATION RT-TID 07/12/16 09/27/18 Nebulized] Aspirin 81 mg PO DAILY 07/12/16 09/27/18 Atorvastatin Calcium [Lipitor] 40 mg PO DAILY 07/12/16 09/27/18 Carvedilol [Coreg] 6.25 mg PO BID 07/12/16 09/27/18 Cholecalciferol [Vitamin D3 (25 1,000 unit PO DAILY 07/12/16 09/27/18 Mcg = 1000 Iu)] Clopidogrel Bisulfate [Plavix] 75 mg PO DAILY 07/12/16 09/27/18 DULoxetine HCL [Cymbalta] 120 mg PO DAILY 07/12/16 09/27/18 Divalproex ER [Depakote ER] 500 mg PO QID 07/12/16 09/27/18 Docusate [Colace] 100 mg PO BID PRN 07/12/16 09/27/18 Escitalopram Oxalate [Lexapro] 20 mg PO DAILY 07/12/16 09/27/18 Famotidine [Pepcid] 20 mg PO DAILY 07/12/16 09/27/18 Furosemide [Lasix] 40 mg PO DAILY 07/12/16 09/27/18 Gabapentin [Neurontin] 600 mg PO QID 07/12/16 09/27/18 Gemfibrozil [Lopid] 600 mg PO BID 07/12/16 09/27/18 Multivitamin [Men's Multi-Vitamin] 1 tab PO DAILY 07/12/16 09/27/18 Ranolazine [Ranexa] 500 mg PO BID 07/12/16 09/27/18 INSULIN ASPART (NovoLOG) [NovoLOG See Protocol SQ DIRECTED 09/27/18 09/27/18 (formulary)] Insulin Glargine [Lantus] 35 unit SQ DAILY 09/27/18 09/27/18 Insulin Glargine [Lantus] 60 unit SQ HS 09/27/18 09/27/18 Morphine Sulfate ER [Ms Contin] 30 mg PO Q8H 09/27/18 09/27/18 Nitroglycerin Sl Tabs [Nitrostat] 0.4 mg SL Q5M 09/27/18 09/27/18 amLODIPine [Norvasc] 5 mg PO DAILY 09/27/18 09/27/18 Allergies Allergy/AdvReac Type Severity Reaction Status Date / Time codeine Allergy Itching Verified 09/27/18 22:09 Review of Systems ROS Statement: Those systems with pertinent positive or pertinent negative responses have been documented in the HPI. ROS Other: All systems not noted in ROS Statement are negative. Past Medical History Past Medical History: Coronary Artery Disease (CAD), Chest Pain / Angina, Heart Failure, COPD, CVA/TIA, Diabetes Mellitus, Eye Disorder, Hyperlipidemia, Hypertension, Myocardial Infarction ([place]), Neurologic Disorder, Pneumonia, Respiratory Disorder, Sleep Apnea/CPAP/BIPAP, Syncope, Thyroid Disorder, Vascular Disorder Additional Past Medical History / Comment(s): hx of drug and alcohol abuse. AAA Last Myocardial Infarction Date:: 2006 History of Any Multi-Drug Resistant Organisms: None Reported Past Surgical History: Cholecystectomy, Coronary Bypass/CABG, Heart Catheterization With Stent Additional Past Surgical History / Comment(s): [place] 2006, CABG Quad 2011, Cholecystectomy 2000, Past Anesthesia/Blood Transfusion Reactions: No Reported Reaction Date of Last Stent Placement:: 2006 Past Psychological History: Anxiety, Bipolar, Depression, Panic Disorder, PTSD Smoking Status: Current every day smoker Past Alcohol Use History: None Reported Past Drug Use History: Cocaine, Marijuana - Past Family History Father Family Medical History: No Reported History Mother Family Medical History: Coronary Artery Disease (CAD), Diabetes Mellitus, Hyperlipidemia, Hypertension General Exam Limitations: no limitations Course Vital Signs 09/27/18 09/27/18 09/28/18 22:07 22:41 00:20 Temperature 98.2 F 97.6 F Pulse Rate 46 L 49 L Pulse Rate [ 49 L Pulse Oximetery ] Respiratory 16 15 18 Rate Blood Pressure 142/80 140/80 Blood Pressure 129/70 [Right Arm] O2 Sat by Pulse 99 97 Oximetry EKG Findings - EKG Comments: EKG Findings:: She was obtained due to complaint of near syncope and bradycardia heart rate. EKG obtained at 2149, rate is 46 rhythm is sinus bradycardia there is LVH and widening QRS, ND 136, QRS 122, QTc 444. There are no acute ST elevations or depressions there is no evidence of acute ischemia or infarction. When compared to EKG obtained in June 2016 there is no significant change in the morphology however sinus bradycardia has replaced sinus rhythm. Medical Decision Making - Medical Decision Making The patient was seen and evaluated, history is obtained from the patient and EMS. She is a 58-year-old woman with extensive past medical history who presents after near syncopal episode, patient's noted to have sinus bradycardia Cardiac workup was initiated EKG is sinus bradycardia cardiac but no ischemic changes labs were reviewed, BNP mildly elevated troponin 0.028, and is at baseline, patient's noted to have hypomagnesemia which was replaced s ymptomatic bradycardia we'll plan to admit for evaluation by cardiology. Patient is in agreement with this plan. - Lab Data Result diagrams: 09/27/18 21:55 09/27/18 21:55 Lab Results 09/27/18 09/27/18 09/27/18 Range/Units 21:55 21:55 21:55 WBC 6.1 (3.8-10.6) k/uL RBC 4.11 L (4.30-5.90) m/uL Hgb 13.1 (13.0-17.5) gm/dL Hct 37.4 L (39.0-53.0) % MCV 91.0 (80.0-100.0) fL MCH 31.8 (25.0-35.0) pg MCHC 34.9 (31.0-37.0) g/dL RDW 13.7 (11.5-15.5) % Plt Count 162 (150-450) k/uL Neutrophils % 49 % Lymphocytes % 38 % Monocytes % 6 % Eosinophils % 4 % Basophils % 1 % Neutrophils # 2.9 (1.3-7.7) k/uL Lymphocytes # 2.3 (1.0-4.8) k/uL Monocytes # 0.4 (0-1.0) k/uL Eosinophils # 0.3 (0-0.7) k/uL Basophils # 0.0 (0-0.2) k/uL PT (9.0-12.0) sec INR (<1.2) APTT (22.0-30.0) sec Sodium 137 (137-145) mmol/L Potassium 4.5 (3.5-5.1) mmol/L Chloride 110 H (98-107) mmol/L Carbon Dioxide 22 (22-30) mmol/L Anion Gap 5 mmol/L BUN 29 H (9-20) mg/dL Creatinine 1.60 H (0.66-1.25) mg/dL Est GFR (CKD-EPI)AfAm 55 (>60 ml/min/1.73 sqM) Est GFR (CKD-EPI)NonAf 47 (>60 ml/min/1.73 sqM) Glucose 109 H (74-99) mg/dL POC Glucose (mg/dL) (75-99) mg/dL POC Glu Junior Php Developer ID Calcium 8.9 (8.4-10.2) mg/dL Magnesium 1.4 L (1.6-2.3) mg/dL Total Bilirubin 0.6 (0.2-1.3) mg/dL AST 50 (17-59) U/L ALT 28 (21-72) U/L Alkaline Phosphatase 64 (38-126) U/L Troponin I (0.000-0.034) ng/mL NT-Pro-B Natriuret Pep 1650 pg/mL Total Protein 6.0 L (6.3-8.2) g/dL Albumin 3.3 L (3.5-5.0) g/dL 09/27/18 09/27/18 09/27/18 Range/Units 21:55 21:55 21:55 WBC (3.8-10.6) k/uL RBC (4.30-5.90) m/uL Hgb (13.0-17.5) gm/dL Hct (39.0-53.0) % MCV (80.0-100.0) fL MCH (25.0-35.0) pg MCHC (31.0-37.0) g/dL RDW (11.5-15.5) % Plt Count (150-450) k/uL Neutrophils % % Lymphocytes % % Monocytes % % Eosinophils % % Basophils % % Neutrophils # (1.3-7.7) k/uL Lymphocytes # (1.0-4.8) k/uL Monocytes # (0-1.0) k/uL Eosinophils # (0-0.7) k/uL Basophils # (0-0.2) k/uL PT 10.0 (9.0-12.0) sec INR 0.9 (<1.2) APTT 22.6 (22.0-30.0) sec Sodium (137-145) mmol/L Potassium (3.5-5.1) mmol/L Chloride (98-107) mmol/L Carbon Dioxide (22-30) mmol/L Anion Gap mmol/L BUN (9-20) mg/dL Creatinine (0.66-1.25) mg/dL Est GFR (CKD-EPI)AfAm (>60 ml/min/1.73 sqM) Est GFR (CKD-EPI)NonAf (>60 ml/min/1.73 sqM) Glucose (74-99) mg/dL POC Glucose (mg/dL) 126 H (75-99) mg/dL POC Glu Junior Php Developer ID Virginia Nieves Calcium (8.4-10.2) mg/dL Magnesium (1.6-2.3) mg/dL Total Bilirubin (0.2-1.3) mg/dL AST (17-59) U/L ALT (21-72) U/L Alkaline Phosphatase (38-126) U/L Troponin I 0.028 (0.000-0.034) ng/mL NT-Pro-B Natriuret Pep pg/mL Total Protein (6.3-8.2) g/dL Albumin (3.5-5.0) g/dL Disposition Clinical Impression: Symptomatic bradycardia Disposition: ADMITTED IP TO THIS HOSP Condition: Stable Is patient prescribed a controlled substance at d/c from ED?: No Referrals: Yuri Kaur MD [Primary Care Provider] - 1-2 days
[2018-09-27 22:32] LABS: INR 0.9 (<1.2); Partial Thromboplastin Time 22.6 sec (22.0-30.0)
--- NOTE | 2018-09-27 23:03 | XR ---
EXAM: XR Chest, 2 Views CLINICAL HISTORY: ITS.REASON XR Reason: Chest Pain TECHNIQUE: Frontal and lateral views of the chest. COMPARISON: 07/12/16 x-ray IMPRESSION: Unchanged heart size. No consolidation or pleural effusion. Median sternotomy wires are intact.
[2018-09-27] MEDS ORDERED: NITROGLYCERIN SL TABS 0.4 MG TAB SUBLINGUAL PRN (23:12)
[2018-09-28] MEDS ORDERED: ALBUTEROL NEBULIZED 2.5 MG/3 ML INHALATION PRN
[2018-09-28] MEDS: MAGNESIUM SULFATE-D5W PMX 1 GM in DEXTROSE/WATER 1 100ML.BAG IVPB SCH ×2 (00:08→00:36)
[2018-09-28] MEDS: DIVALPROEX ER 500 MG TAB.ER.24H PO SCH ×5 (00:09→21:17)
[2018-09-28 00:26] VITALS: BMI 25.8
[2018-09-28] MEDS: MORPHINE SULFATE ER 30 MG TABLET PO SCH ×4 (01:59→23:30)
[2018-09-28 04:50] LABS: Cholesterol 201 mg/dL (<200); HDL Cholesterol 48 mg/dL (40-60); LDL Cholesterol,Calculated 115 mg/dL (0-99); Triglycerides 190 mg/dL (<150)
[2018-09-28 06:09] LABS: Glucose,Whole Blood 275 mg/dL (75-99)
[2018-09-28] MEDS: INSULIN ASPART (NovoLOG) 100 UNIT/ML VIAL SQ SCH ×4 (06:10→21:12)
[2018-09-28] MEDS: ALBUTEROL NEBULIZED 2.5 MG/3 ML INHALATION SCH ×3 (07:12→20:30)
[2018-09-28] MEDS: ASPIRIN 81 MG PO SCH (07:20)
[2018-09-28] MEDS: DULoxetine HCL 60 MG CAPSULE.DR PO SCH (07:20)
[2018-09-28] MEDS: ATORVASTATIN 40 MG TAB PO SCH (07:20)
[2018-09-28] MEDS: CLOPIDOGREL 75 MG TAB PO SCH (07:20)
[2018-09-28] MEDS: FAMOTIDINE 20 MG TAB PO SCH (07:21)
[2018-09-28] MEDS: ESCITALOPRAM 20 MG TAB PO SCH (07:21)
[2018-09-28] MEDS: GABAPENTIN 300 MG CAP PO SCH ×4 (07:22→21:17)
[2018-09-28] MEDS: FUROSEMIDE 40 MG TAB PO SCH (07:22)
[2018-09-28] MEDS ORDERED: amLODIPine 5 MG TAB PO SCH (09:00)
[2018-09-28] MEDS ORDERED: ASPIRIN 325 MG TAB PO SCH (09:00)
[2018-09-28] MEDS ORDERED: CARVEDILOL 6.25 MG TAB PO SCH (09:00)
[2018-09-28 11:48] LABS: Glucose,Whole Blood 140 mg/dL (75-99)
--- NOTE | 2018-09-28 12:01 | P.CRDCN ---
History of Present Illness Consult date: 09/28/18 Chief complaint: Presyncope History of present illness: This is a pleasant 58-year-old gentleman with an extensive cardiac history consistent of coronary artery disease and prior coronary artery vascularization in the term of bypasses as well as a stenting, both were performed out of the town, peripheral arterial disease and known abdominal aortic aneurysm, hypertension, dyslipidemia, and significant history of smoking, presented to the emergency room with presyncope. The patient was in his usual state of health where he was standing underlying a [employer] when he suddenly felt weak and about to lose his consciousness. He fell on the floor. He did not have any symptoms of chest pain or discomfort, feeling of heart racing or fluttering, and he did not have syncope. Because of that he decided to come to the emergency room. In the ER he was found to be bradycardic with sinus bradycardia and resting heart rate in the 40s. He was on Coreg 6.25 mg by mouth twice a day and that is on hold at this point. No known thyroid dysfunction in the past. The cardiac enzymes were checked and came in to be unremarkable. The chest x-ray did not show any acute abnormalities. 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 Past Medical History Past Medical History: Coronary Artery Disease (CAD), Chest Pain / Angina, Heart Failure, COPD, CVA/TIA, Diabetes Mellitus, Eye Disorder, Hyperlipidemia, Hypertension, Myocardial Infarction ([place]), Neurologic Disorder, Pneumonia, Respiratory Disorder, Sleep Apnea/CPAP/BIPAP, Syncope, Thyroid Disorder, Vascular Disorder Additional Past Medical History / Comment(s): hx of drug and alcohol abuse. AAA Last Myocardial Infarction Date:: 2006 History of Any Multi-Drug Resistant Organisms: None Reported Past Surgical History: Cholecystectomy, Coronary Bypass/CABG, Heart Catheterization With Stent Additional Past Surgical History / Comment(s): [place] 2006, CABG Quad 2011, Cholecystectomy 2000, Past Anesthesia/Blood Transfusion Reactions: No Reported Reaction Date of Last Stent Placement:: 2006 Past Psychological History: Anxiety, Bipolar, Depression, Panic Disorder, PTSD Smoking Status: Current every day smoker Past Alcohol Use History: None Reported Past Drug Use History: Cocaine, Marijuana - Past Family History Father Family Medical History: No Reported History Mother Family Medical History: Coronary Artery Disease (CAD), Diabetes Mellitus, Hyperlipidemia, Hypertension Medications and Allergies Home Medications Medication Instructions Recorded Confirmed Type Albuterol Inhaler [Ventolin Hfa 2 puff INHALATION RT-QID PRN 07/12/16 09/27/18 History Inhaler] Albuterol Nebulized [Ventolin 2.5 mg INHALATION RT-TID 07/12/16 09/27/18 History Nebulized] Aspirin 81 mg PO DAILY 07/12/16 09/27/18 History Atorvastatin Calcium [Lipitor] 40 mg PO DAILY 07/12/16 09/27/18 History Carvedilol [Coreg] 6.25 mg PO BID 07/12/16 09/27/18 History Cholecalciferol [Vitamin D3 (25 1,000 unit PO DAILY 07/12/16 09/27/18 History Mcg = 1000 Iu)] Clopidogrel Bisulfate [Plavix] 75 mg PO DAILY 07/12/16 09/27/18 History DULoxetine HCL [Cymbalta] 120 mg PO DAILY 07/12/16 09/27/18 History Divalproex ER [Depakote ER] 500 mg PO QID 07/12/16 09/27/18 History Docusate [Colace] 100 mg PO BID PRN 07/12/16 09/27/18 History Escitalopram Oxalate [Lexapro] 20 mg PO DAILY 07/12/16 09/27/18 History Famotidine [Pepcid] 20 mg PO DAILY 07/12/16 09/27/18 History Furosemide [Lasix] 40 mg PO DAILY 07/12/16 09/27/18 History Gabapentin [Neurontin] 600 mg PO QID 07/12/16 09/27/18 History Gemfibrozil [Lopid] 600 mg PO BID 07/12/16 09/27/18 History Multivitamin [Men's Multi-Vitamin] 1 tab PO DAILY 07/12/16 09/27/18 History Ranolazine [Ranexa] 500 mg PO BID 07/12/16 09/27/18 History INSULIN ASPART (NovoLOG) [NovoLOG See Protocol SQ DIRECTED 09/27/18 09/27/18 History (formulary)] Insulin Glargine [Lantus] 35 unit SQ DAILY 09/27/18 09/27/18 History Insulin Glargine [Lantus] 60 unit SQ HS 09/27/18 09/27/18 History Morphine Sulfate ER [Ms Contin] 30 mg PO Q8H 09/27/18 09/27/18 History Nitroglycerin Sl Tabs [Nitrostat] 0.4 mg SL Q5M 09/27/18 09/27/18 History amLODIPine [Norvasc] 5 mg PO DAILY 09/27/18 09/27/18 History Allergies Allergy/AdvReac Type Severity Reaction Status Date / Time codeine Allergy Itching Verified 09/27/18 22:09 Physical Exam Vitals: Vital Signs Temp Pulse Pulse Resp BP BP Pulse Ox 09/28/18 08:00 97.4 F L 50 L 18 117/57 98 09/28/18 07:24 50 L 09/28/18 07:15 54 L 96 09/28/18 04:00 97.8 F 47 L 18 142/76 98 09/28/18 03:09 49 L 18 09/28/18 00:20 97.6 F 49 L 18 129/70 97 09/27/18 22:41 49 L 15 140/80 09/27/18 22:07 98.2 F 46 L 16 142/80 99 Intake and Output 09/27/18 09/28/18 09/28/18 22:59 06:59 14:59 Intake Total 240 Balance 240 Intake: Oral 240 Other: # Voids 1 Weight 77.111 kg 77.3 kg - Constitutional General appearance: no acute distress - Respiratory Respiratory: bilateral: CTA - Cardiovascular Rhythm: regular Heart sounds: normal: S1, S2 Results 09/27/18 21:55 09/27/18 21:55 Cardiac Enzymes 09/27/18 09/27/18 09/28/18 Range/Units 21:55 21:55 04:07 AST 50 (17-59) U/L Troponin I 0.028 0.034 (0.000-0.034) ng/mL 09/28/18 Range/Units 10:07 AST (17-59) U/L Troponin I 0.026 (0.000-0.034) ng/mL Coagulation 09/27/18 Range/Units 21:55 PT 10.0 (9.0-12.0) sec APTT 22.6 (22.0-30.0) sec Lipids 09/28/18 Range/Units 04:07 Triglycerides 190 H (<150) mg/dL Cholesterol 201 H (<200) mg/dL HDL Cholesterol 48 (40-60) mg/dL CBC 09/27/18 Range/Units 21:55 WBC 6.1 (3.8-10.6) k/uL RBC 4.11 L (4.30-5.90) m/uL Hgb 13.1 (13.0-17.5) gm/dL Hct 37.4 L (39.0-53.0) % Plt Count 162 (150-450) k/uL Comprehensive Metabolic Panel 09/27/18 Range/Units 21:55 Sodium 137 (137-145) mmol/L Potassium 4.5 (3.5-5.1) mmol/L Chloride 110 H (98-107) mmol/L Carbon Dioxide 22 (22-30) mmol/L BUN 29 H (9-20) mg/dL Creatinine 1.60 H (0.66-1.25) mg/dL Glucose 109 H (74-99) mg/dL Calcium 8.9 (8.4-10.2) mg/dL AST 50 (17-59) U/L ALT 28 (21-72) U/L Alkaline Phosphatase 64 (38-126) U/L Total Protein 6.0 L (6.3-8.2) g/dL Albumin 3.3 L (3.5-5.0) g/dL Current Medications Generic Name Dose Route Start Last Admin Trade Name Freq PRN Reason Stop Dose Admin Albuterol Sulfate 2.5 mg 09/28/18 00:00 Ventolin Nebulized INHALATION RT-QID PRN Shortness Of Breath Albuterol Sulfate 2.5 mg 09/28/18 08:00 09/28/18 07:12 Ventolin Nebulized INHALATION 2.5 mg RT-TID VERNELL Administration Aspirin 81 mg 09/28/18 09:00 09/28/18 07:20 Aspirin PO 81 mg DAILY VERNELL Administration Atorvastatin Calcium 40 mg 09/28/18 09:00 09/28/18 07:20 Lipitor PO 40 mg DAILY VERNELL Administration Clopidogrel Bisulfate 75 mg 09/28/18 09:00 09/28/18 07:20 Plavix PO 75 mg DAILY VERNELL Administration Divalproex Sodium 500 mg 09/27/18 23:00 09/28/18 07:21 Depakote Er PO 500 mg QID VERNELL Administration Duloxetine HCl 120 mg 09/28/18 09:00 09/28/18 07:20 Cymbalta PO 120 mg DAILY VERNELL Administration Escitalopram Oxalate 20 mg 09/28/18 09:00 09/28/18 07:21 Lexapro PO 20 mg DAILY VERNELL Administration Famotidine 20 mg 09/28/18 09:00 09/28/18 07:21 Pepcid PO 20 mg DAILY VERNELL Administration Furosemide 40 mg 09/28/18 09:00 09/28/18 07:22 Lasix PO 40 mg DAILY VERNELL Administration Gabapentin 600 mg 09/28/18 09:00 09/28/18 07:22 Neurontin PO 600 mg QID VERNELL Administration Insulin Aspart 0 unit 09/28/18 07:30 09/28/18 06:10 Novolog SQ 4 unit ACHS VERNELL Administration Protocol Morphine Sulfate 30 mg 09/27/18 23:00 09/28/18 06:15 Ms Contin PO Not Given Q8H VERNELL Nitroglycerin 0.4 mg 09/27/18 23:12 Nitrostat SUBLINGUAL Q5M PRN Chest Pain Intake and Output 09/27/18 09/28/18 09/28/18 22:59 06:59 14:59 Intake Total 240 Balance 240 Intake: Oral 240 Other: # Voids 1 Weight 77.111 kg 77.3 kg 09/27/18 21:55 09/27/18 21:55 Assessment and Plan Assessment: Assessment #1 symptomatic sinus bradycardia #2 presyncope secondary to the above #3 severe coronary artery disease and status post revascularization #4 known an abdominal aortic aneurysm #5 significant history of smoking #6 hypertension #7 dyslipidemia #8 multiple comorbid conditions Plan #1 acute coronary event was ruled out. The patient had normal serial enzymes #2 the bradycardia is likely to be iatrogenic related to Coreg but conduction system abnormalities to be ruled out #3 continue holding the Coreg and continue avoiding any AV neville kumar agents #4 obtain an echocardiogram was Doppler #6 TSH and free T4 Thank you for allowing us participate in his care and we will continue following up with him
[2018-09-28 16:56] LABS: Glucose,Whole Blood 385 mg/dL (75-99)
[2018-09-28] MEDS ORDERED: DOCUSATE 100 MG CAP PO PRN (17:40)
[2018-09-28] MEDS ORDERED: NITROGLYCERIN SL TABS 0.4 MG TAB SUBLINGUAL SCH (17:45)
[2018-09-28] MEDS: NICOTINE 21MG/24HR PATCH TRANSDERM SCH (17:52)
[2018-09-28 20:31] LABS: Glucose,Whole Blood 212 mg/dL (75-99)
--- NOTE | 2018-09-28 20:56 | HP ---
HISTORY AND PHYSICAL DATE OF ADMISSION: 09/27/2018. DATE OF SERVICE: 09/28/2018 PRESENTING COMPLAINT: Weakness in the legs. HISTORY OF PRESENTING COMPLAINT: This is a 58-year-old patient who follows with Dr. Nicholas Kaur out of [facility]. Chronic stable medical conditions include coronary artery disease, congestive heart failure, COPD, diabetes, hypertension, hyperlipidemia, obstructive sleep apnea, does not use CPAP machine. The patient also had abdominal aortic aneurysm. The patient has a followup appointment with the vascular surgeon out of the area. The patient was standing in line for [employer], suddenly felt his legs to become weak any buckled down yet to hold down. The patient was found to be bradycardic when he presented with a heart rate around the 40s. Coreg was discontinued. Admitted for the same. No chest pain, no palpitation. Baseline some shortness of breath. The patient has decreased circulation in the lower extremities. No fever. No chills. No palpitations. No chest pain. REVIEW OF SYSTEMS: CONSTITUTIONAL: None. HEENT: None. RESPIRATORY: Baseline some shortness of breath. CARDIOVASCULAR: None. GASTROINTESTINAL: None. GENITOURINARY: None. MUSCULOSKELETAL: None. DERMATOLOGIC/HEMATOLOGIC/LYMPHATIC: None. PSYCHIATRY: None. NEUROLOGICAL: None. PAST MEDICAL HISTORY: Coronary artery disease, congestive heart failure, EF not known; COPD, diabetes mellitus type 2, eye disorder, hyperlipidemia, hypertension, peripheral neuropathy, obstructive sleep apnea, thyroid disorder, abdominal aortic aneurysm. PAST SURGICAL HISTORY: Cholecystectomy, coronary bypass, cardiac cath with stent, [place] in 2006, bypass in 2011. PSYCH HISTORY: Bipolar disorder, PTSD. SOCIAL HISTORY: Patient smoking up to 2 packs a day, now down to a pack a day for many years. The patient did crack cocaine, stopped in 2011. Patient lives by himself. FAMILY HISTORY: Reviewed, noncontributory to presentation advice. HOME MEDICATIONS: 1. Norvasc 5 mg a day. 2. Ranexa 500 mg b.i.d. 3. Nitrostat 0.4 sublingual q.5 p.r.n. 4. Mens multivitamin 1 tablet p.o. daily. 5. MS Contin 30 mg q.8h. 6. Lantus 60 units in the evening and 35 units in the morning and sliding scale. 7. Lopid 600 mg b.i.d. 8. Neurontin 600 mg q.i.d. 9. Lasix 40 mg p.o. daily. 10.Pepcid 20 mg p.o. daily. 11.Lexapro 20 mg p.o. daily. 12.Colace 100 mg b.i.d. p.r.n. 13.Depakote ER 500 mg q.i.d. 14.Cymbalta 120 mg p.o. daily. 15.Plavix 75 mg p.o. daily. 16.Vitamin D3 1000 units p.o. daily. 17.Coreg 6.25 p.o. b.i.d. 18.Lipitor 40 mg p.o. daily. 19.Aspirin 81 mg p.o. daily. 20.Ventolin 2.5 t.i.d. ALLERGIES: CODEINE. PHYSICAL EXAMINATION: Vital signs on presentation: Temperature 98.2, pulse 46, respiration 16, blood pressure 142/80, pulse 99% on 2 L. GENERAL APPEARANCE: Average build, lying in bed, not in distress. EYES: Pupils equal. Conjunctivae normal. HEENT: External appearance of nose and ears normal. Oral cavity normal. NECK: JVD not raised. Mass not palpable. Respiratory effort slightly increased. LUNGS: Decreased breath sounds, expiratory wheezing. CARDIOVASCULAR: First and second sounds normal. No edema. ABDOMEN: Soft, nontender. Liver and spleen not palpable. LYMPHATIC: No lymph node palpable in neck or axilla. PSYCHIATRY: Alert and oriented x3. Mood and affect normal. NEUROLOGICAL: Pupils equal and grossly intact. Power and sensation grossly intact. INVESTIGATIONS: White count 6.1, hemoglobin 13.1, potassium 4.5, BUN 29, creatinine 1.60. LDL is 115. Troponin 0.028, 0.034, 0.026. EKG tracing personally reviewed by me shows sinus bradycardia and nonspecific ST-T wave changes. Chest x-ray film personally reviewed by me shows cardiomegaly, lung davila otherwise to be clear. ASSESSMENT: 1. This patient presented with weakness in both lower extremities probably from sinus bradycardia secondary to Coreg. 2. Coronary artery disease with prior history of coronary bypass. 3. Chronic congestive heart failure, EF not known. 4. Chronic obstructive pulmonary disease in a current smoker. 5. Chronic nicotine dependence in a cigarette smoker. 6. Diabetes mellitus type 2, chronically on insulin. 7. Hyperlipidemia. 8. Essential hypertension. 9. Diabetic peripheral neuropathy. 10.Obstructive sleep apnea, does not use a CPAP machine. 11.Abdominal aortic aneurysm. The patient has appointment with an outside the area vascular surgeon. 12.Peripheral artery disease. 13.Chronic kidney disease Stage III from diabetic nephropathy and hypertensive nephrosclerosis. PLAN: Home medications are resumed. Accu-Cheks to be closely followed. Beta kumar has been held. Cardiology was consulted. Care was discussed with the patient, questions were answered. The patient is put on telemetry. Smoking cessation counseling, this was done at length with the patient. The patient will be given a nicotine patch. More than 3 minutes was spent on this aspect of the case. MMODL / IJN: [id number] /
[2018-09-28] MEDS ORDERED: INSULIN DETEMIR (LEVEMIR) 100 UNIT/ML SYR SQ SCH (21:00)
[2018-09-28] MEDS: RANOLAZINE 500 MG TAB.ER.12H PO SCH (21:17)
[2018-09-29 06:01] LABS: Glucose,Whole Blood 75 mg/dL (75-99)
[2018-09-29] MEDS: INSULIN ASPART (NovoLOG) 100 UNIT/ML VIAL SQ SCH ×2 (06:21→12:36)
[2018-09-29] MEDS: MORPHINE SULFATE ER 30 MG TABLET PO SCH ×2 (06:25→15:38)
[2018-09-29] MEDS: ALBUTEROL NEBULIZED 2.5 MG/3 ML INHALATION SCH ×2 (08:47→13:31)
[2018-09-29] MEDS: RANOLAZINE 500 MG TAB.ER.12H PO SCH (08:51)
[2018-09-29] MEDS: GABAPENTIN 300 MG CAP PO SCH ×2 (08:52→12:36)
[2018-09-29] MEDS: FUROSEMIDE 40 MG TAB PO SCH (08:52)
[2018-09-29] MEDS: ESCITALOPRAM 20 MG TAB PO SCH (08:52)
[2018-09-29] MEDS: NICOTINE 21MG/24HR PATCH TRANSDERM SCH (08:52)
[2018-09-29] MEDS: FAMOTIDINE 20 MG TAB PO SCH (08:52)
[2018-09-29] MEDS: CLOPIDOGREL 75 MG TAB PO SCH (08:52)
[2018-09-29] MEDS: ATORVASTATIN 40 MG TAB PO SCH (08:52)
[2018-09-29] MEDS: DIVALPROEX ER 500 MG TAB.ER.24H PO SCH ×2 (08:52→12:36)
[2018-09-29] MEDS: ASPIRIN 81 MG PO SCH (08:52)
[2018-09-29] MEDS: DULoxetine HCL 60 MG CAPSULE.DR PO SCH (08:52)
[2018-09-29] MEDS ORDERED: INSULIN DETEMIR (LEVEMIR) 100 UNIT/ML SYR SQ SCH (09:00)
[2018-09-29] MEDS ORDERED: FENOFIBRATE 160 MG TAB PO SCH (09:00)
[2018-09-29] MEDS ORDERED: amLODIPine 5 MG TAB PO SCH (11:30)
--- NOTE | 2018-09-29 11:51 | P.PN ---
Subjective Progress Note Date: 09/29/18 This is a pleasant 58-year-old gentleman with an extensive cardiac history consistent of coronary artery disease and prior coronary artery vascularization in the term of bypasses as well as a stenting, both were performed out of the town, peripheral arterial disease and known abdominal aortic aneurysm, hy pertension, dyslipidemia, and significant history of smoking, presented to the emergency room with presyncope. The patient was in his usual state of health where he was standing underlying a [employer] when he suddenly felt weak and about to lose his consciousness. He fell on the floor. He did not have any symptoms of chest pain or discomfort, feeling of heart racing or fluttering, and he did not have syncope. Because of that he decided to come to the emergency room. In the ER he was found to be bradycardic with sinus bradycardia and resting heart rate in the 40s. He was on Coreg 6.25 mg by mouth twice a day and that is on hold at this point. No known thyroid dysfunction in the past. The cardiac enzymes were checked and came in to be unremarkable. The chest x-ray did not show any acute abnormalities. 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 09/29/2018 Patient was seen and examined this morning, up ambulating in the hallway, denies any dizziness or lightheadedness, hemodynamically stable. Blood pressure 156/90 with a heart rate in the 70s, 97% on room air. Cardiology's perspective, patient may be able to be discharged home today. We'll make him a follow-up appointment to see Dr. Alvarez in the office post discharge. Objective - Vital Signs Vital signs: Vital Signs Temp 98.1 F 09/29/18 08:00 Pulse 72 09/29/18 08:57 Resp 20 09/29/18 08:00 BP 162/91 09/29/18 08:00 Pulse Ox 97 09/29/18 08:00 Intake & Output 09/28/18 09/29/18 09/29/18 18:59 06:59 18:59 Intake Total 490 1650 Output Total 900 Balance -410 1650 Weight 78.2 kg Intake: IV 10 0.9 10 Oral 480 1650 Output: Urine 900 Other: # Voids 1 1 - Exam PHYSICAL EXAMINATION: GENERAL: 78-year-old gentleman in no acute distress at the time of my examination HEENT: Head is atraumatic, normocephalic. Pupils equal, round. Sclera anicteric. Conjunctiva are clear. Mucous membranes of the mouth are moist. Neck is supple. There is no elevated jugular venous pressure. No carotid bruit is heard. HEART EXAMINATION: Heart S1, S2 normal. No murmur or gallop heard. CHEST EXAMINATION: Lungs are clear to auscultation and precussion. No chest wall tenderness is noted on palpation or with deep breathing. ABDOMEN: Soft, nontender. Bowel sounds are heard. No organomegaly noted. EXTREMITIES: 2+ peripheral pulses with no evidence of peripheral edema and no calf tenderness noted. NEUROLOGIC patient is awake, alert and oriented 3 . . - Labs CBC & Chem 7: 09/27/18 21:55 09/27/18 21:55 Labs: Abnormal Lab Results - Last 24 Hours (Table) 09/28/18 09/28/18 09/28/18 Range/Units 11:41 16:48 20:30 POC Glucose (mg/dL) 140 H 385 H 212 H (75-99) mg/dL Assessment and Plan Plan: Assessment #1 symptomatic sinus bradycardia #2 presyncope secondary to the above #3 severe coronary artery disease and status post revascularization #4 known an abdominal aortic aneurysm #5 significant history of smoking #6 hypertension #7 dyslipidemia #8 multiple comorbid conditions Plan From Cardiology's perspective, we'll review the patient's echo cardiac gram with Doppler study. TSH is normal. We will continue to hold any AV neville kumar agents. Patient may be able to be discharged home from our perspective and we'll make him a follow-up appointment to see Dr. Alvarez in the office post discharge. DNP note has been reviewed, I agree with a documented findings and plan of care. Patient was seen and examined.
--- NOTE | 2018-09-29 12:14 | ECHOF ---
Referral Reason:bradycardia MEASUREMENTS -------- HEIGHT: 172.7 cm WEIGHT: 77.1 kg BP: 167/90 IVSd: 1.4 cm (0.6 - 1.1) LVIDd: 5.3 cm (3.9 - 5.3) LVPWd: 1.5 cm (0.6 - 1.1) IVSs: 1.9 cm LVIDs: 4.8 cm LVPWs: 1.4 cm LA Diam: 4.6 cm (2.7 - 3.8) RVIDd: 3.4 cm (< 3.3) LAESV Index (A-L): 44.61 ml/m Ao Diam: 3.6 cm (2.0 - 3.7) AV Cusp: 2.0 cm (1.5 - 2.6) EPSS: 1.1 cm MV E Jeyson: 1.11 m/s MV DecT: 245 ms MV A Jeyson: 0.96 m/s MV E/A Ratio: 1.16 RAP: 5.00 mmHg RVSP: 39.66 mmHg MV EF SLOPE: 51.05 mm/s (70 - 150) MV EXCURSION: 20.82 mm (> 18.000) FINDINGS -------- Sinus rhythm. This was a technically good study. The left ventricular size is normal. There is moderate concentric left ventricular hypertrophy. O verall left ventricular systolic function is mild-moderately impaired with, an EF between 40 - 45 %. Basal inferior LV wall motion is akinetic. Basal inferoseptal LV wall motion is hypokinetic. The right ventricle is mildly enlarged. LA is severely dilated >40 ml/m2 The right atrium is normal in size. Aneurysmal Interatrial septum. There is mild aortic valve sclerosis. The mitral valve leaflets are mildly thickened. [id number] mitral regurgitation is present. Mild tricuspid regurgitation present. There is mild pulmonary hypertension. The right ventricular systolic pressure, as measured by Doppler, is 39.66mmHg. Trace/mild (physiologic) pulmonic regurgitation. The aortic root size is normal. IVC Not well visulized. There is no pericardial effusion. CONCLUSIONS -------- 1. Sinus rhythm. 2. This was a technically good study. 3. The left ventricular size is normal. 4. There is moderate concentric left ventricular hypertrophy. 5. Overall left ventricular systolic function is mild-moderately impaired with, an EF between 40 - 45 %. 6. Basal inferior LV wall motion is akinetic. 7. Basal inferoseptal LV wall motion is hypokinetic. 8. The right ventricle is mildly enlarged. 9. LA is severely dilated >40 ml/m2 10. The right atrium is normal in size. 11. Aneurysmal Interatrial septum. 12. There is mild aortic valve sclerosis. 13. The mitral valve leaflets are mildly thickened. 14. Iyao-no-bhjwlncz mitral regurgitation is present. 15. Mild tricuspid regurgitation present. 16. There is mild pulmonary hypertension. 17. The right ventricular systolic pressure, as measured by Doppler, is 39.66mmHg. 18. Trace/mild (physiologic) pulmonic regurgitation. 19. The aortic root size is normal. 20. IVC Not well visulized. 21. There is no pericardial effusion. SPEECH PROFESSOR: Janeth Barrera RDCS
[2018-09-29 12:32] LABS: Glucose,Whole Blood 250 mg/dL (75-99)
[2018-09-29 12:59] VITALS: PULSE 89; RESP 22; TEMP 98
[2018-09-29 13:56] VITALS: BP 146/75
[2018-09-29] MEDS ORDERED: CARVEDILOL 3.125 MG TAB PO SCH (15:30)
--- NOTE | 2018-09-30 09:40 | DS ---
DISCHARGE SUMMARY DATE OF ADMISSION: 09/27/2018. DATE OF DISCHARGE: 09/29/2018 FINAL DIAGNOSES: 1. Symptomatic bradycardia leading to near syncope from beta kumar. 2. Coronary artery, prior history of coronary bypass. 3. Chronic congestive heart failure, ejection fraction not known. 4. Chronic obstructive pulmonary disease in a current smoker. 5. Chronic nicotine dependence, patient is a cigarette smoker. 6. Diabetes mellitus type 2, chronically on insulin. 7. Hyperlipidemia. 8. Essential hypertension. 9. Diabetic peripheral neuropathy. 10.Obstructive sleep apnea, does not use a CPAP. 11.Abdominal aortic aneurysm. Follow up with surgery. 12.Peripheral artery disease. 13.Chronic kidney disease stage III from diabetic nephropathy and hypertensive nephrosclerosis. HOSPITAL COURSE: This patient presented with his legs buckling down. Patient found to be significantly bradycardic. Dose of beta kumar was cut back. Patient continues to smoke, today the heart rate has come up. Dose of beta kumar has been reduced. A 2D echocardiogram shows EF of 40%-45%. Patient was today again counseled about smoking. Patient may follow up with Dr. Shepard regarding his abdominal aortic aneurysm. Today, a lot of time was spent discussing his blood pressure medications, smoking cessation and he also had some questions about CBD. I did tell them that this was not my expertise and I really cannot comment to one way or the other. PHYSICAL EXAMINATION: Temperature 98, pulse 69, respiration 22, blood pressure 146/75, pulse ox 91% on room air. LUNGS: Decreased breath sounds with some wheezing. ABDOMEN: Soft, nontender. INVESTIGATIONS: Accu-Cheks are noted. Consultation from Dr. Shepard from Cardiology. Patient's BUN and creatinine is 29/1.60. LDL is 115. DISCHARGE MEDICATIONS: 1. Ventolin HFA 2 puffs q.i.d. p.r.n. 2. Nebulizer t.i.d. 3. Aspirin 81 mg a day. 4. Lipitor 40 mg a day. 5. Vitamin D3 one thousand units p.o. daily. 6. Plavix 75 mg a day. 7. Cymbalta 120 mg a day. 8. Depakote ER 500 mg b.i.d. 9. Colace 100 mg b.i.d. p.r.n. 10.Lexapro 20 mg daily. 11.Pepcid 20 mg p.o. daily. 12.Lasix 40 mg p.o. daily. 13.Neurontin 600 mg p.o. q.i.d. 14.Lopressor 600 mg b.i.d. 15.Men's multivitamin 1 tablet p.o. daily. 16.Ranexa 500 mg p.o. b.i.d. 17.NovoLog per scale. 18.MS Contin 30 mg p.o. q.8. 19.Nitrostat 0.4 mg sublingual q.5. 20.Norvasc 5 mg p.o. daily. 21.Coreg 3.125 p.o. b.i.d. 22.Lantus 40 units subcutaneously q.12. 23.Nicotine patch 14. Follow up[ with Nicholas Kaur in [facility] in [address] Daisy England on 10/16/2018. Dr. Shepard in 3 days for his abdominal aortic aneurysm. This was discussed with the patient. MMODL / IJN: [id number] /
== END 2018-09-29 15:46 | disposition home or self-care (01) | DRG 309 ==
LOC: EC 21:45 → 3SCARD 23:13
PROVIDERS: ADMIT Hospitalist; ATTEND Hospitalist
DX: R00.1 Bradycardia, unspecified (principal); I13.0 Hypertensive heart and chronic kidney disease with heart failure and stage 1 through stage 4 chronic kidney disease, or unspecified chronic kidney disease; T44.7X5A Adverse effect of beta-adrenoreceptor antagonists, initial encounter; E11.22 Type 2 diabetes mellitus with diabetic chronic kidney disease; E11.42 Type 2 diabetes mellitus with diabetic polyneuropathy; E11.51 Type 2 diabetes mellitus with diabetic peripheral angiopathy without gangrene; E78.5 Hyperlipidemia, unspecified; F17.210 Nicotine dependence, cigarettes, uncomplicated; F31.9 Bipolar disorder, unspecified; F41.0 Panic disorder [episodic paroxysmal anxiety]; F43.10 Post-traumatic stress disorder, unspecified; G47.33 Obstructive sleep apnea (adult) (pediatric); I25.10 Atherosclerotic heart disease of native coronary artery without angina pectoris; I25.2 Old myocardial infarction; I50.9 Heart failure, unspecified; I71.4 Abdominal aortic aneurysm, without rupture; J44.9 Chronic obstructive pulmonary disease, unspecified; N18.3 Chronic kidney disease, stage 3 (moderate); Z91.81 History of falling; Z79.02 Long term (current) use of antithrombotics/antiplatelets; Z79.4 Long term (current) use of insulin; Z79.82 Long term (current) use of aspirin; Z79.899 Other long term (current) drug therapy; Z82.49 Family history of ischemic heart disease and other diseases of the circulatory system; Z83.3 Family history of diabetes mellitus; Z86.73 Personal history of transient ischemic attack (TIA), and cerebral infarction without residual deficits; Z90.49 Acquired absence of other specified parts of digestive tract; Z95.1 Presence of aortocoronary bypass graft; Z95.5 Presence of coronary angioplasty implant and graft; Z87.01 Personal history of pneumonia (recurrent); Z60.2 Problems related to living alone; F14.11 Cocaine abuse, in remission
CPT/HCPCS: 36415; 71046; 80053; 80061; 83735; 83880; 84443; 84484; 85025; 85610; 85730; 93005; 93306; 94640; 94760; 99285